=== PATIENT | female | born 1970 | race African-American/Black ===

== ENCOUNTER 2016-05-24 08:58 | Inpatient (IN) | payer BC, OTHER ==
[~2016-05-24] VITALS: Ht 149.9 cm; Wt 81.6 kg
--- NOTE | 2016-05-24 10:55 | PHYS DOC ---
Past Medical History Past Medical History: No Pertinent History Past Surgical History: Appendectomy, Hysterectomy Alcohol Use: Rarely Drug Use: None Adult General Chief Complaint Chief Complaint: LOWER EXTREMITY SWELLING HPI HPI Patient is a 46 year old female presents emergency department stating that a week ago she felt a lump on her left groin area. She states within the last few days it has become worse and increase in tenderness. She states that she did try to pop the area. She denies having any success with this. She does state that she's had some redness down into her upper thigh and into the pubic area. She's been taken Aleve for pain and discomfort. She does state her tetanus immunization is up-to-date. She does have white to yellowish drainage noted at the site. She has increased tenderness and warmth noted. Review of Systems Review of Systems Constitutional: Denies fever or chills [] Eyes: Denies change in visual acuity, redness, or eye pain [] HENT: Denies nasal congestion or sore throat [] Respiratory: Denies cough or shortness of breath [] Cardiovascular: No additional information not addressed in HPI [] GI: Denies abdominal pain, nausea, vomiting, bloody stools or diarrhea [] : Denies dysuria or hematuria [] Musculoskeletal: Denies back pain or joint pain [] Integument: Denies rash or skin lesions. Abscess to the left groin area with redness into the upper left thigh and in the pubic area Neurologic: Denies headache, focal weakness or sensory changes [] Endocrine: Denies polyuria or polydipsia [] Allergies Allergies Allergies Coded Allergies Type Severity Reaction Last Updated Verified No Known Drug Allergies 05/24/16 No Physical Exam Physical Exam Constitutional: Well developed, well nourished, no acute distress, non-toxic appearance. [] HENT: Normocephalic, atraumatic, bilateral external ears normal, oropharynx moist, no oral exudates, nose normal. [] Eyes: PERRLA, EOMI, conjunctiva normal, no discharge. [] Neck: Normal range of motion, no tenderness, supple, no stridor. [] Cardiovascular:Heart rate regular rhythm, no murmur [] Lungs & Thorax: Bilateral breath sounds clear to auscultation [] Skin: Warm, dry, no erythema, no rash. Left groin area with redness, warmth, tenderness noted in the groin into the pubic area and into the left upper thigh. Patient with yellow thick discharge noted at the site. Back: No tenderness Extremities: No tenderness, no cyanosis, no clubbing, ROM intact, no edema. [] Neurologic: Alert and oriented X 3, normal motor function, normal sensory function, no focal deficits noted. [] Psychologic: Affect normal, judgement normal, mood normal. [] Current Patient Data Vital Signs Vital Signs Date Time Temp Pulse Resp B/P Pulse Ox O2 Delivery O2 Flow Rate FiO2 05/24/16 10:24 98.2 90 20 162/75 96 Room Air 98.2 EKG EKG [] Radiology/Procedures Radiology/Procedures [] Course & Med Decision Making Course & Med Decision Making Pertinent Labs and Imaging studies reviewed. (See chart for details) Spoke with Dr Romo in regards to admission for this patient. He is aware labs are pending at this time. Dr Romo did request consult to ID CBC with a slight elevated white count [] Dragon Disclaimer Dragon Disclaimer This electronic medical record was generated, in whole or in part, using a voice recognition dictation system. Departure Departure Impression: Primary Impression: Cellulitis of leg, left Disposition: ADMITTED INPATIENT Admitting Physician: Jose Romo Condition: STABLE Referrals: CAROLINA SUTHERLAND DO (PCP) CASSIE JAMES NP May 24, 2016 10:55
[2016-05-24 11:17] LABS: BASO # 0.1 x10^3/uL (0.0-0.2); BASO % 1 % (0-3); EOS % 1 % (0-3); HEMATOCRIT 39.1 % (36.0-47.0); HEMOGLOBIN 13.3 g/dL (12.0-15.5); LYMPH # 1.8 x10^3/uL (1.0-4.8); LYMPH % 11 % (24-48); MEAN CORPUSCULAR HEMOGLOBIN 30 pg (25-35); MEAN CORPUSCULAR HGB CONC 34 g/dL (31-37); MEAN CORPUSCULAR VOLUME 87 fL (79-100); MONO % 5 % (0-9); NEUT % 83 % (31-73); PLATELET COUNT 211 x10^3/uL (140-400); RED BLOOD COUNT 4.52 x10^6/uL (3.50-5.40); RED CELL DISTRIBUTION WIDTH 12.8 % (11.5-14.5); WHITE BLOOD COUNT 16.8 x10^3/uL (4.0-11.0)
[2016-05-24 11:20] LABS: CALCIUM 9.5 mg/dL (8.5-10.1); GFR 72.9; POTASSIUM 3.5 mmol/L (3.5-5.1)
[2016-05-24 11:26] LABS: ALBUMIN 3.6 g/dL (3.4-5.0); ALBUMIN/GLOBULIN RATIO 0.7 (1.0-1.7); TOTAL PROTEIN 8.7 g/dL (6.4-8.2)
[2016-05-24] MEDS ORDERED: FENTANYL PF 100 MCG/2 ML VIAL. IV ONE (11:45)
[2016-05-24 12:53] LABS: % EOS 1 % (0-5)
[2016-05-24 12:54] LABS: PLT ESTIMATE ADEQUATE (ADEQUATE)
[2016-05-24 14:09] VITALS: BP 123/72
[2016-05-24] MEDS ORDERED: VANCOMYCIN PER PHARMACY MC PRN (14:15)
[2016-05-24] MEDS ORDERED: VANCOMYCIN 1 GM in IV NORMAL SALINE 250ML 250 ML IV SCH (14:15)
[2016-05-24] MEDS ORDERED: VANCOMYCIN 2 GM in IV NORMAL SALINE 500ML BAG 500 ML IV ONE (14:15)
--- NOTE | 2016-05-24 14:35 | PDOC ---
Infectious Disease Note ROS ROS GEN: Denies fevers, chills, sweats HEENT: Denies blurred vision, sore throat CV: Denies chest pain RESP: Denies shortness of air, cough GI: Denies n/v/d NEURO: Denies confusion, dizziness MSK: Denies weakness, joint pain/swelling Vital Sign Vital Signs Vital Signs Date Time Temp Pulse Resp B/P Pulse Ox O2 Delivery O2 Flow Rate FiO2 05/24/16 13:36 90 148/79 100 Room Air 05/24/16 12:06 18 05/24/16 10:24 98.2 98.2 Physical Exam PHYSICAL EXAM GENERAL: NAD, Alert HEENT: PERRL, OC/OP NECK: Supple, no JVD, no LN LUNGS: Clear HEART: S1S2, no gallop, no murmur ABD: Soft, NT, no organomegaly, no rebound EXT: No edema, no cyanosis AGENT SPA DESK: Alert, oriented x 3, no focal neurologic deficit SKIN: No rash IV: ok Labs Lab Laboratory Tests Test 05/24/16 11:00 White Blood Count 16.8x10^3/uL (4.0-11.0) Red Blood Count 4.52x10^6/uL (3.50-5.40) Hemoglobin 13.3g/dL (12.0-15.5) Hematocrit 39.1% (36.0-47.0) Mean Corpuscular Volume 87fL (79-100) Mean Corpuscular Hemoglobin 30pg (25-35) Mean Corpuscular Hemoglobin Concent 34g/dL (31-37) Red Cell Distribution Width 12.8% (11.5-14.5) Platelet Count 211x10^3/uL (140-400) Neutrophils (%) (Auto) 83% (31-73) Lymphocytes (%) (Auto) 11% (24-48) Monocytes (%) (Auto) 5% (0-9) Eosinophils (%) (Auto) 1% (0-3) Basophils (%) (Auto) 1% (0-3) Neutrophils # (Auto) 13.9x10^3uL (1.8-7.7) Lymphocytes # (Auto) 1.8x10^3/uL (1.0-4.8) Monocytes # (Auto) 0.9x10^3/uL (0.0-1.1) Eosinophils # (Auto) 0.1x10^3/uL (0.0-0.7) Basophils # (Auto) 0.1x10^3/uL (0.0-0.2) Segmented Neutrophils % 81% (35-66) Band Neutrophils % 1% (0-9) Lymphocytes % 10% (24-48) Atypical Lymphocytes % (Manual) 3% (0-0) Monocytes % 4% (0-10) Eosinophils % 1% (0-5) Platelet Estimate Adequate (ADEQUATE) Sodium Level 140mmol/L (136-145) Potassium Level 3.5mmol/L (3.5-5.1) Chloride Level 103mmol/L (98-107) Carbon Dioxide Level 27mmol/L (21-32) Anion Gap 10 (6-14) Blood Urea Nitrogen 17mg/dL (7-20) Creatinine 1.0mg/dL (0.6-1.0) Estimated GFR (Cockcroft-Gault) 72.9 BUN/Creatinine Ratio 17 (6-20) Glucose Level 108mg/dL (70-99) Lactic Acid Level 1.0mmol/L (0.4-2.0) Calcium Level 9.5mg/dL (8.5-10.1) Total Bilirubin 1.0mg/dL (0.2-1.0) Aspartate Amino Transf (AST/SGOT) 41U/L (15-37) Alanine Aminotransferase (ALT/SGPT) 61U/L (14-59) Alkaline Phosphatase 104U/L (46-116) Total Protein 8.7g/dL (6.4-8.2) Albumin 3.6g/dL (3.4-5.0) Albumin/Globulin Ratio 0.7 (1.0-1.7) Objective Assessment Left groin abscess Left groin cellulitis Obesity Transaminitis Plan Plan of Care Add Zosyn Change to Zyovx CT pelvis F/u labs and cults Contact isolation Await surgical eval D/w family # [id number] LOBITO WELCH MD May 24, 2016 14:35
--- NOTE | 2016-05-24 14:38 | PDOC1 ---
History and Physical Past Medical History Past Medical History none Past Surgical History Past Surgical History: Appendectomy Family History Family History: Other (abscess in children) Social History Smoke: No ALCOHOL: rare Current Problem List Problem List Problems Medical Problems: (1) Abscess Status: Acute (2) Cellulitis of leg, left Status: Acute Current Medications Current Medications Current Medications Medications (Trade) Dose Ordered Sig/Kaylee Start Time Stop Time Status Last Admin Dose Admin Acetaminophen/ Hydrocodone Bitart (Lortab 5/325) 1 tab Q4HRS 05/24/16 12:00 Fentanyl Citrate 50 mcg 50 mcg 1X ONCE 05/24/16 11:45 05/24/16 11:46 DC 05/24/16 12:06 50 MCG Linezolid (Zyvox) 600 mg BID 05/24/16 21:00 Piperacillin Sod/ Tazobactam Sod/ Sodium Chloride (Zosyn/Iv Sodium Chloride 0.9% 50ml) 50 ml @ 100 mls/hr Q6HRS 05/24/16 14:45 Vancomycin HCl 1 each 1 each PRN DAILY PRN 05/24/16 14:15 05/24/16 14:29 DC Vancomycin HCl 2 gm/Sodium Chloride 500 ml @ 250 mls/hr 1X ONCE 05/24/16 14:15 05/24/16 16:14 Vancomycin HCl/ Sodium Chloride (Iv Sodium Chloride 0.9% 250ml) 250 ml @ 250 mls/hr Q12H 05/24/16 14:15 UNV Allergies Allergies Allergies Coded Allergies Type Severity Reaction Last Updated Verified No Known Drug Allergies 05/24/16 No ROS Review of System CONSTITUTIONAL: No fever or chills EYES: No recent changes SKIN: No rash or itching CARDIOVASCULAR: No chest pain, syncope, palpitations, or edema RESPIRATORY: No SOB or cough GASTROINTESTINAL: No nausea, vomiting or abdominal pain NEUROLOGICAL: No headaches or weakness ENDOCRINE: No cold or heat intolerance GENITOURINARY: No urgency or frequency of urination MUSCULOSKELETAL: left thigh cellulitis. LYMPHATICS: No enlarged lymph nodes PSYCHIATRIC: No anxiety or depression Physical Exam Physical Exam GEN.: No apparent distress. Alert and oriented. HEENT: Head is normocephalic, atraumatic NECK: Supple. no jvd LUNGS: Clear to auscultation. normal airflow HEART: RRR, S1, S2 present. Peripheral pulses intact ABDOMEN: Soft, nontender. Positive bowel sounds. EXTREMITIES: left thigh abscess, cellulitis NEUROLOGIC: Normal speech, normal tone PSYCHIATRIC: Normal affect, normal mood. SKIN: Vitals Vitals Vital Signs Date Time Temp Pulse Resp B/P Pulse Ox O2 Delivery O2 Flow Rate FiO2 05/24/16 13:36 90 148/79 100 Room Air 05/24/16 12:06 18 05/24/16 10:24 98.2 98.2 Labs Labs Laboratory Tests Test 05/24/16 11:00 White Blood Count 16.8x10^3/uL (4.0-11.0) Red Blood Count 4.52x10^6/uL (3.50-5.40) Hemoglobin 13.3g/dL (12.0-15.5) Hematocrit 39.1% (36.0-47.0) Mean Corpuscular Volume 87fL (79-100) Mean Corpuscular Hemoglobin 30pg (25-35) Mean Corpuscular Hemoglobin Concent 34g/dL (31-37) Red Cell Distribution Width 12.8% (11.5-14.5) Platelet Count 211x10^3/uL (140-400) Neutrophils (%) (Auto) 83% (31-73) Lymphocytes (%) (Auto) 11% (24-48) Monocytes (%) (Auto) 5% (0-9) Eosinophils (%) (Auto) 1% (0-3) Basophils (%) (Auto) 1% (0-3) Neutrophils # (Auto) 13.9x10^3uL (1.8-7.7) Lymphocytes # (Auto) 1.8x10^3/uL (1.0-4.8) Monocytes # (Auto) 0.9x10^3/uL (0.0-1.1) Eosinophils # (Auto) 0.1x10^3/uL (0.0-0.7) Basophils # (Auto) 0.1x10^3/uL (0.0-0.2) Segmented Neutrophils % 81% (35-66) Band Neutrophils % 1% (0-9) Lymphocytes % 10% (24-48) Atypical Lymphocytes % (Manual) 3% (0-0) Monocytes % 4% (0-10) Eosinophils % 1% (0-5) Platelet Estimate Adequate (ADEQUATE) Sodium Level 140mmol/L (136-145) Potassium Level 3.5mmol/L (3.5-5.1) Chloride Level 103mmol/L (98-107) Carbon Dioxide Level 27mmol/L (21-32) Anion Gap 10 (6-14) Blood Urea Nitrogen 17mg/dL (7-20) Creatinine 1.0mg/dL (0.6-1.0) Estimated GFR (Cockcroft-Gault) 72.9 BUN/Creatinine Ratio 17 (6-20) Glucose Level 108mg/dL (70-99) Lactic Acid Level 1.0mmol/L (0.4-2.0) Calcium Level 9.5mg/dL (8.5-10.1) Total Bilirubin 1.0mg/dL (0.2-1.0) Aspartate Amino Transf (AST/SGOT) 41U/L (15-37) Alanine Aminotransferase (ALT/SGPT) 61U/L (14-59) Alkaline Phosphatase 104U/L (46-116) Total Protein 8.7g/dL (6.4-8.2) Albumin 3.6g/dL (3.4-5.0) Albumin/Globulin Ratio 0.7 (1.0-1.7) Laboratory Tests Test 05/24/16 11:00 White Blood Count 16.8x10^3/uL (4.0-11.0) Red Blood Count 4.52x10^6/uL (3.50-5.40) Hemoglobin 13.3g/dL (12.0-15.5) Hematocrit 39.1% (36.0-47.0) Mean Corpuscular Volume 87fL (79-100) Mean Corpuscular Hemoglobin 30pg (25-35) Mean Corpuscular Hemoglobin Concent 34g/dL (31-37) Red Cell Distribution Width 12.8% (11.5-14.5) Platelet Count 211x10^3/uL (140-400) Neutrophils (%) (Auto) 83% (31-73) Lymphocytes (%) (Auto) 11% (24-48) Monocytes (%) (Auto) 5% (0-9) Eosinophils (%) (Auto) 1% (0-3) Basophils (%) (Auto) 1% (0-3) Neutrophils # (Auto) 13.9x10^3uL (1.8-7.7) Lymphocytes # (Auto) 1.8x10^3/uL (1.0-4.8) Monocytes # (Auto) 0.9x10^3/uL (0.0-1.1) Eosinophils # (Auto) 0.1x10^3/uL (0.0-0.7) Basophils # (Auto) 0.1x10^3/uL (0.0-0.2) Segmented Neutrophils % 81% (35-66) Band Neutrophils % 1% (0-9) Lymphocytes % 10% (24-48) Atypical Lymphocytes % (Manual) 3% (0-0) Monocytes % 4% (0-10) Eosinophils % 1% (0-5) Platelet Estimate Adequate (ADEQUATE) Sodium Level 140mmol/L (136-145) Potassium Level 3.5mmol/L (3.5-5.1) Chloride Level 103mmol/L (98-107) Carbon Dioxide Level 27mmol/L (21-32) Anion Gap 10 (6-14) Blood Urea Nitrogen 17mg/dL (7-20) Creatinine 1.0mg/dL (0.6-1.0) Estimated GFR (Cockcroft-Gault) 72.9 BUN/Creatinine Ratio 17 (6-20) Glucose Level 108mg/dL (70-99) Lactic Acid Level 1.0mmol/L (0.4-2.0) Calcium Level 9.5mg/dL (8.5-10.1) Total Bilirubin 1.0mg/dL (0.2-1.0) Aspartate Amino Transf (AST/SGOT) 41U/L (15-37) Alanine Aminotransferase (ALT/SGPT) 61U/L (14-59) Alkaline Phosphatase 104U/L (46-116) Total Protein 8.7g/dL (6.4-8.2) Albumin 3.6g/dL (3.4-5.0) Albumin/Globulin Ratio 0.7 (1.0-1.7) VTE Prophylaxis Ordered VTE Prophylaxis Devices: Yes VTE Pharmacological Prophylaxi: Yes ENE ROBERTSON MD May 24, 2016 14:38
[2016-05-24] MEDS: HYDROCODONE/APAP 5/325MG TABLET. PO SCH ×2 (14:41→16:00)
[2016-05-24] MEDS ORDERED: ALBUTEROL SULFATE 2.5 MG/3 ML NEBU. NEB PRN (14:45)
[2016-05-24] MEDS ORDERED: hydrALAZINE 20 MG/ML VIAL. IVP PRN (14:45)
[2016-05-24] MEDS ORDERED: ONDANSETRON PF 4 MG/2 ML VIAL. IV PRN (14:45)
[2016-05-24] MEDS ORDERED: IOHEXOL 300 MG/ML 75 ML VIAL IV ONE (14:45)
[2016-05-24] MEDS ORDERED: CONTRAST GIVEN MC PRN (14:45)
[2016-05-24] MEDS ORDERED: ACETAMINOPHEN 325 MG TABLET. PO PRN (14:45)
--- NOTE | 2016-05-24 15:34 | RAD ---
Indication Left groin abscess. Axial images through the elbows were obtained. The abdomen was not examined. 75 cc of Omnipaque 300 was administered intravenously. No oral contrast was administered. There is streaking, compatible with an inflammatory process (such as cellulitis) in the subcutaneous soft tissues of the upper anterior thigh extending medially near the area of the labrum. There is moderate adenopathy in the left groin which is probably reactive. An underlying abscess is not seen. No additional finding is seen. IMPRESSION: Findings in the left upper and medial thigh compatible with an inflammatory process such as cellulitis. Moderate adenopathy in the left groin is likely reactive. No underlying abscess is seen PQRS Compliance Statement: One or more of the following individualized dose reduction techniques were utilized for this examination: 1. Automated exposure control 2. Adjustment of the mA and/or kV according to patient size 3. Use of iterative reconstruction technique
[2016-05-24] MEDS: PIPERACILLIN/TAZOBACTAM 3.375 GM in IV NORMAL SALINE 50ML 50 ML IV SCH ×2 (15:49→18:00)
--- NOTE | 2016-05-24 16:15 | ACF ---
Admission Forms Criteria CELLULITIS Clinical Indications for Admission to Inpatient Care (Place 'X' for any and all applicable criteria): Admission is indicated for ANY ONE of the following(1)(2)(3)(4)(5): [X]I. Limb-threatening infection [ ]II. High-risk comorbid condition as indicated by ANY ONE of the following: [ ]a) Uncontrolled diabetes (eg, HbA1c greater than 10% (0.1)) [ ]b) Cirrhosis [ ]c) Neutropenia [ ]d) Asplenia [ ]e) Immunosuppression [ ]f) Symptomatic heart failure [ ]III. Failure of outpatient therapy as indicated by ALL of the following: [ ]a) Progression or no improvement after adequate trial (minimum of 48 hours, with longer period for stable lower extremity infection) [ ]b) Adequate antibiotic regimen as indicated by use of ANY ONE of the following: [ ]i) First-generation cephalosporin (e.g., cephalexin) [ ]ii) Antistaphylococcal penicillin (e.g., dicloxacillin) [ ]iii) Penicillin-allergic patient regimen (clindamycin, extended-spectrum fluoroquinolone, or doxycycline) [ ]iv) Resistant organism (eg, methicillin-resistant Staphylococcus aureus) regimen (6) [ ]c) Outpatient intravenous therapy regimen is not appropriate due to ANY ONE of the following. (7)(8)(9)(10): [ ]i) It was tried and was not successful (eg, progression of infection). [ ]ii) It is not available or cannot be arranged in a clinically appropriate time frame (e.g., the next day). [ ]iii) Clinical presentation (eg, acuity of infection, rapidity of progression, confirmed or suspected bacteremia) is judged to require ALL of the following: [ ]1) Immediate initiation of intravenous therapy ( eg, cannot wait for next day) [ ]2) Intensity of patient monitoring and observation (eg, vital sign measurement, checks for infection progression) that cannot be provided at other than inpatient level of care [ ]IV. Mental status changes [ ]V. Bacteremia [ ]. Hemodynamic instability [ ]VII. Suspected necrotizing soft tissue infection (e.g., gas in tissue)(11)( 12) [ ]VIII. Orbital infection (13)(14) [ ]IX. Associated surgical procedure (e.g., abscess drainage, debridement) not amenable to outpatient, emergency department, or observation care [ ]X. Cutaneous gangrene [ ]XI. High fever (temperature greater than 39.5 degrees C (103.1 degrees F) (oral)) not responsive to outpatient, emergency department, or observation care therapy [ ]XIII. Inpatient admission required rather than observation care (Also use Cellulitis: Observation Care as appropriate) because of ANY ONE of the following : [ ]a) Periorbital or perineal infection that is severe or worsening [ ]b) Severe pain requiring acute inpatient management [ ]c) IV fluid to replace significant ongoing (e.g., for over 24 hours) losses (greater than 3L/m2 per day) [ ]d) Compartment syndrome monitoring (17) [ ]e) Strict or protective (eg, laminar flow) isolation [ ]f) Urgent debridement or skin grafting [ ]g) Bone or joint debridement [ ]h) Immediate inpatient surgery [ ]i) Other condition, treatment or monitoring requiring inpatient admission Extended stay beyond goal length of stay may be needed for (1)(18): [ ]a) Necrotizing soft tissue infection or fasciitis [ ]b) Gram-negative infection [ ]c) Methicillin-resistant Staphylococcal aureus (MRSA) infection [ ]d) Peripheral venous insufficiency with cellulitis [ ]e) Extensive edema [ ]f) Sepsis or continued Hemodynamic instability [ ]g) Continued high fever or mental status change [ ]h) Bacteremia [ ]i) Active serious comorbid conditions ( eg, heart failure, renal insufficiency) The original [employer] content created by [employer] has been revised. The portions of the content which have been revised are identified through the use of italic text or in bold, and [facility] has neither reviewed nor approved the modified material. All other unmodified content is copyright [employer] [facility] [employer] Please see references footnoted in the original [employer] [facility] [employer] edition 2016 Admission Criteria Met?: Yes NIR VEGA May 24, 2016 16:14
[2016-05-24 19:00] VITALS: BP 122/75
[2016-05-24] MEDS: LINEZOLID 600 MG TABLET PO SCH (21:03)
[2016-05-24] MEDS: HYDROCODONE/APAP 5/325MG TABLET. PO PRN (21:06)
[2016-05-24 23:00] VITALS: BP 128/61
[2016-05-25] MEDS: PIPERACILLIN/TAZOBACTAM 3.375 GM in IV NORMAL SALINE 50ML 50 ML IV SCH ×5 (00:17→23:59)
[2016-05-25 03:00] VITALS: BP 105/60
--- NOTE | 2016-05-25 03:26 | HP ---
ADMIT DATE: 05/24/2016 CHIEF COMPLAINT: Left lower extremity redness and swelling. HISTORY OF PRESENT ILLNESS: A 46-year-old female patient with no significant prior history noted to have a lump on her left groin area and she did poke it; however, later, she continued to notice some redness and worsening pain with increased swelling in the left groin area. The patient tried to take some amoxicillin from family members, she took 2 tablets; however, she did not get any relief. She tried Aleve, which did not give her any comfort. She is complaining of some discharge from that area along with worsening pain. PAST MEDICAL HISTORY, REVIEW OF SYSTEMS AND PHYSICAL EXAMINATION: Please see my electronic H and P. LABORATORY FINDINGS: WBC 16.8, hemoglobin is 13.3, MCV is 87, MCHC is 34, platelets 211, bands 1%. Chemistry: Sodium is 140, potassium 3.5, carbon dioxide is 27, anion gap is 10, creatinine 1.0, GFR is 72.9, albumin is 3.6. IMAGING STUDIES: Pelvic CT showed findings in the left upper and medial thickened, but with inflammatory process such as cellulitis, moderate adenopathy in the left groin, likely reactive. ASSESSMENT: 1. Left groin abscess and cellulitis. 2. Obesity, mild elevation of liver enzymes. PLAN: 1. The patient has been admitted for pain control and IV antibiotics. Infectious Disease has been consulted. The patient was started on Zosyn and Zylox at this time. Pain control with morphine 2 mg q. 2 hours. 2. Supportive care. 3. If symptoms did not improve, we will consult General Surgery. 4. Wound cultures have been obtained. 5. No DVT prophylaxis. 6. Length of stay is expecting <5 days. ENE ROBERTSON MD DR: ZOË/berto JOB#: [id number] / [id number] SUSAN
[2016-05-25 07:00] VITALS: BP 127/71
[2016-05-25 07:05] LABS: BASO % 0 % (0-3); EOS % 2 % (0-3); HEMATOCRIT 34.6 % (36.0-47.0); HEMOGLOBIN 11.7 g/dL (12.0-15.5); LYMPH # 1.4 x10^3/uL (1.0-4.8); LYMPH % 15 % (24-48); MEAN CORPUSCULAR HEMOGLOBIN 29 pg (25-35); MEAN CORPUSCULAR HGB CONC 34 g/dL (31-37); MEAN CORPUSCULAR VOLUME 87 fL (79-100); MONO % 6 % (0-9); NEUT % 77 % (31-73); PLATELET COUNT 204 x10^3/uL (140-400); RED BLOOD COUNT 3.97 x10^6/uL (3.50-5.40); RED CELL DISTRIBUTION WIDTH 13.1 % (11.5-14.5); WHITE BLOOD COUNT 8.9 x10^3/uL (4.0-11.0)
[2016-05-25 07:27] LABS: GFR 72.9; POTASSIUM 3.4 mmol/L (3.5-5.1)
--- NOTE | 2016-05-25 08:02 | PDOC2 ---
LAUREN HOLLIS MR TEACHER 05/25/16 0802: CONSULT Date of Consult Date of Consult DATE: 05/25/16 TIME: 07:56 Reason for Consult Reason for Consult: Groin abscess Referring Physician Referring Physician: ER Identification/Chief Complaint Chief Complaint groin swelling Source Source: Chart review, Patient History of Present Illness Reason for Visit: Saturday developed groin pain, bumps-though maybe ingrown hair. Saturday more swelling and pain, sister plucked some hairs and attempted to "pop the mass and relieve pressure. It only had some bloody return. The pain and pressure continued, she then developed worsening redness to leg. Past Medical History Past Medical History no pertinent hx Past Surgical History Past Surgical History: Appendectomy, Hysterectomy Family History Family History: Other (abscess in children) Social History No ALCOHOL: rare Drugs: None Lives: Alone Current Problem List Problem List Problems Medical Problems: (1) Abscess Status: Acute (2) Cellulitis of leg, left Status: Acute Current Medications Current Medications Current Medications Acetaminophen/ Hydrocodone Bitart (Lortab 5/325) 1 tab Q4HRS PO Last administered on 05/24/16 14:41; Start 05/24/16 at 12:00; Stop 05/24/16 at 17:54; Status DC Fentanyl Citrate 50 mcg 50 mcg 1X ONCE IV Last administered on 05/24/16 12:06 ; Start 05/24/16 at 11:45; Stop 05/24/16 at 11:46; Status DC Vancomycin HCl/ Sodium Chloride (Iv Sodium Chloride 0.9% 250ml) 250 ml @ 250 mls/hr Q12H IV ; Start 05/24/16 at 14:15; Status UNV Vancomycin HCl 1 each 1 each PRN DAILY PRN MC SEE COMMENTS; Start 05/24/16 at 14 :15; Stop 05/24/16 at 14:29; Status DC Vancomycin HCl 2 gm/Sodium Chloride 500 ml @ 250 mls/hr 1X ONCE IV Last administered on 05/24/16 15:51; Start 05/24/16 at 14:15; Stop 05/24/16 at 16:14; Status DC Piperacillin Sod/ Tazobactam Sod/ Sodium Chloride (Zosyn/Iv Sodium Chloride 0.9 % 50ml) 50 ml @ 100 mls/hr Q6HRS IV Last administered on 05/25/16 06:03; Start 05/24/16 at 14:45 Linezolid (Zyvox) 600 mg BID PO Last administered on 05/24/16 21:03; Start 05/24 at 21:00 Acetaminophen (Tylenol) 325 mg PRN Q6HRS PRN PO MILD PAIN / TEMP; Start at 14:45 Acetaminophen/ Hydrocodone Bitart (Lortab 5/325) 1 tab PRN Q6HRS PRN PO MODERATE TO SEVERE PAIN Last administered on 05/24/16 21:06; Start 05/24/16 at 14 :45 Hydralazine HCl (Apresoline) 10 mg PRN Q4HRS PRN IVP ELEVATED BP, SEE COMMENTS ; Start 05/24/16 at 14:45 Ondansetron HCl (Zofran) 4 mg PRN Q8HRS PRN IV NAUSEA/VOMITING; Start 05/24/16 at 14:45 Albuterol Sulfate (Ventolin Neb Soln) 2.5 mg PRN Q4HRS PRN NEB SHORTNESS OF BREATH; Start 05/24/16 at 14:45 Morphine Sulfate 2 mg PRN Q2HR PRN IV PAIN; Start 05/24/16 at 14:45 Iohexol (Omnipaque 300 Mg/ml) 75 ml 1X ONCE IV Last administered on 05/24/16 14:45; Start 05/24/16 at 14:45; Stop 05/24/16 at 14:46; Status DC Info (Do NOT chart on this entry -- for MONITORING) 1 each PRN DAILY PRN MC SEE COMMENTS; Start 05/24/16 at 14:45; Stop 05/26/16 at 14:44 Allergies Allergies: Coded Allergies: No Known Drug Allergies (Unverified , 05/24/16) ROS General: YES: Chills, Other (+ fevers ) PSYCHOLOGICAL ROS: No: Anxiety, Depression Eyes: No Blurry vision, No Double vision HEENT: No: Heacaches, Sore Throat Hematological and Lymphatic: No: Bleeding Problems, Blood Clots Respiratory: No: Cough, Shortness of breath Cardiovascular: No Chest Pain, No Palpitations Gastrointestinal: No Nausea, No Vomiting Genitourinary: No Dysuria, No Hematuria Musculoskeletal: Yes Muscle Pain, No Joint Pain Neurological: No Confusion, No Numbness/Tingling Skin: Yes Other (see hpi) Physical Exam General: Alert, Oriented X3, Cooperative, No acute distress HEENT: PERRLA, Mucous membr. moist/pink Lungs: Clear to auscultation, Normal air movement Heart: Regular rate, Normal S1, Normal S2, No murmurs Abdomen: Soft, No tenderness Extremities: Other (Left groin with erythema, no fluctuance, open wound, small amount of drainage, minimal induration ) Neuro: Normal speech, Sensation intact Psych/Mental Status: Mental status NL, Mood NL MUSCULOSKELETAL: No deformity, No swelling Vitals VITALS Vital Signs Date Time Temp Pulse Resp B/P Pulse Ox O2 Delivery O2 Flow Rate FiO2 05/25/16 07:25 Room Air 05/25/16 03:00 97.5 83 18 105/60 94 97.5 Labs Labs Laboratory Tests Test 05/24/16 11:00 05/25/16 05:35 White Blood Count 16.8x10^3/uL (4.0-11.0) 8.9x10^3/uL (4.0-11.0) Red Blood Count 4.52x10^6/uL (3.50-5.40) 3.97x10^6/uL (3.50-5.40) Hemoglobin 13.3g/dL (12.0-15.5) 11.7g/dL (12.0-15.5) Hematocrit 39.1% (36.0-47.0) 34.6% (36.0-47.0) Mean Corpuscular Volume 87fL (79-100) 87fL (79-100) Mean Corpuscular Hemoglobin 30pg (25-35) 29pg (25-35) Mean Corpuscular Hemoglobin Concent 34g/dL (31-37) 34g/dL (31-37) Red Cell Distribution Width 12.8% (11.5-14.5) 13.1% (11.5-14.5) Platelet Count 211x10^3/uL (140-400) 204x10^3/uL (140-400) Neutrophils (%) (Auto) 83% (31-73) 77% (31-73) Lymphocytes (%) (Auto) 11% (24-48) 15% (24-48) Monocytes (%) (Auto) 5% (0-9) 6% (0-9) Eosinophils (%) (Auto) 1% (0-3) 2% (0-3) Basophils (%) (Auto) 1% (0-3) 0% (0-3) Neutrophils # (Auto) 13.9x10^3uL (1.8-7.7) 6.9x10^3uL (1.8-7.7) Lymphocytes # (Auto) 1.8x10^3/uL (1.0-4.8) 1.4x10^3/uL (1.0-4.8) Monocytes # (Auto) 0.9x10^3/uL (0.0-1.1) 0.5x10^3/uL (0.0-1.1) Eosinophils # (Auto) 0.1x10^3/uL (0.0-0.7) 0.2x10^3/uL (0.0-0.7) Basophils # (Auto) 0.1x10^3/uL (0.0-0.2) 0.0x10^3/uL (0.0-0.2) Segmented Neutrophils % 81% (35-66) Band Neutrophils % 1% (0-9) Lymphocytes % 10% (24-48) Atypical Lymphocytes % (Manual) 3% (0-0) Monocytes % 4% (0-10) Eosinophils % 1% (0-5) Platelet Estimate Adequate (ADEQUATE) Sodium Level 140mmol/L (136-145) 142mmol/L (136-145) Potassium Level 3.5mmol/L (3.5-5.1) 3.4mmol/L (3.5-5.1) Chloride Level 103mmol/L (98-107) 107mmol/L (98-107) Carbon Dioxide Level 27mmol/L (21-32) 26mmol/L (21-32) Anion Gap 10 (6-14) 9 (6-14) Blood Urea Nitrogen 17mg/dL (7-20) 15mg/dL (7-20) Creatinine 1.0mg/dL (0.6-1.0) 1.0mg/dL (0.6-1.0) Estimated GFR (Cockcroft-Gault) 72.9 72.9 BUN/Creatinine Ratio 17 (6-20) Glucose Level 108mg/dL (70-99) 101mg/dL (70-99) Lactic Acid Level 1.0mmol/L (0.4-2.0) Calcium Level 9.5mg/dL (8.5-10.1) 9.0mg/dL (8.5-10.1) Total Bilirubin 1.0mg/dL (0.2-1.0) Aspartate Amino Transf (AST/SGOT) 41U/L (15-37) Alanine Aminotransferase (ALT/SGPT) 61U/L (14-59) Alkaline Phosphatase 104U/L (46-116) Total Protein 8.7g/dL (6.4-8.2) Albumin 3.6g/dL (3.4-5.0) Albumin/Globulin Ratio 0.7 (1.0-1.7) Laboratory Tests Test 05/24/16 11:00 05/25/16 05:35 White Blood Count 16.8x10^3/uL (4.0-11.0) 8.9x10^3/uL (4.0-11.0) Red Blood Count 4.52x10^6/uL (3.50-5.40) 3.97x10^6/uL (3.50-5.40) Hemoglobin 13.3g/dL (12.0-15.5) 11.7g/dL (12.0-15.5) Hematocrit 39.1% (36.0-47.0) 34.6% (36.0-47.0) Mean Corpuscular Volume 87fL (79-100) 87fL (79-100) Mean Corpuscular Hemoglobin 30pg (25-35) 29pg (25-35) Mean Corpuscular Hemoglobin Concent 34g/dL (31-37) 34g/dL (31-37) Red Cell Distribution Width 12.8% (11.5-14.5) 13.1% (11.5-14.5) Platelet Count 211x10^3/uL (140-400) 204x10^3/uL (140-400) Neutrophils (%) (Auto) 83% (31-73) 77% (31-73) Lymphocytes (%) (Auto) 11% (24-48) 15% (24-48) Monocytes (%) (Auto) 5% (0-9) 6% (0-9) Eosinophils (%) (Auto) 1% (0-3) 2% (0-3) Basophils (%) (Auto) 1% (0-3) 0% (0-3) Neutrophils # (Auto) 13.9x10^3uL (1.8-7.7) 6.9x10^3uL (1.8-7.7) Lymphocytes # (Auto) 1.8x10^3/uL (1.0-4.8) 1.4x10^3/uL (1.0-4.8) Monocytes # (Auto) 0.9x10^3/uL (0.0-1.1) 0.5x10^3/uL (0.0-1.1) Eosinophils # (Auto) 0.1x10^3/uL (0.0-0.7) 0.2x10^3/uL (0.0-0.7) Basophils # (Auto) 0.1x10^3/uL (0.0-0.2) 0.0x10^3/uL (0.0-0.2) Segmented Neutrophils % 81% (35-66) Band Neutrophils % 1% (0-9) Lymphocytes % 10% (24-48) Atypical Lymphocytes % (Manual) 3% (0-0) Monocytes % 4% (0-10) Eosinophils % 1% (0-5) Platelet Estimate Adequate (ADEQUATE) Sodium Level 140mmol/L (136-145) 142mmol/L (136-145) Potassium Level 3.5mmol/L (3.5-5.1) 3.4mmol/L (3.5-5.1) Chloride Level 103mmol/L (98-107) 107mmol/L (98-107) Carbon Dioxide Level 27mmol/L (21-32) 26mmol/L (21-32) Anion Gap 10 (6-14) 9 (6-14) Blood Urea Nitrogen 17mg/dL (7-20) 15mg/dL (7-20) Creatinine 1.0mg/dL (0.6-1.0) 1.0mg/dL (0.6-1.0) Estimated GFR (Cockcroft-Gault) 72.9 72.9 BUN/Creatinine Ratio 17 (6-20) Glucose Level 108mg/dL (70-99) 101mg/dL (70-99) Lactic Acid Level 1.0mmol/L (0.4-2.0) Calcium Level 9.5mg/dL (8.5-10.1) 9.0mg/dL (8.5-10.1) Total Bilirubin 1.0mg/dL (0.2-1.0) Aspartate Amino Transf (AST/SGOT) 41U/L (15-37) Alanine Aminotransferase (ALT/SGPT) 61U/L (14-59) Alkaline Phosphatase 104U/L (46-116) Total Protein 8.7g/dL (6.4-8.2) Albumin 3.6g/dL (3.4-5.0) Albumin/Globulin Ratio 0.7 (1.0-1.7) Assessment/Plan Assessment/Plan Left groin cellulitis Obesity No drainable abscess on CT, wound is open--would place small packing strip in wound to keep open Continue abx Follow for possible development of drainable abscess will review with DESTINY Cho MD 05/25/16 0934: CONSULT Allergies Allergies: Coded Allergies: No Known Drug Allergies (Unverified , 05/24/16) Assessment/Plan Assessment/Plan Patient seen and examined by me. Left upper leg erythema and pain with open sore in the groin with drainage. Improving wbc. CT did not show drainable fluid collection. Continue abx will follow. LAUREN HOLLIS APRN May 25, 2016 08:02 DESTINY PETERSEN MD May 25, 2016 09:34
[2016-05-25] MEDS: HYDROCODONE/APAP 5/325MG TABLET. PO PRN ×2 (08:04→16:27)
--- NOTE | 2016-05-25 08:13 | PDOC ---
Infectious Disease Note Subjective Subjective Doing ok. Less pain ROS ROS GEN: Denies fevers, chills, sweats HEENT: Denies blurred vision, sore throat CV: Denies chest pain RESP: Denies shortness of air, cough GI: Denies n/v/d NEURO: Denies confusion, dizziness MSK: Denies weakness Vital Sign Vital Signs Vital Signs Date Time Temp Pulse Resp B/P Pulse Ox O2 Delivery O2 Flow Rate FiO2 05/25/16 08:04 Room Air 05/25/16 03:00 97.5 83 18 105/60 94 97.5 Physical Exam PHYSICAL EXAM GENERAL: NAD, Alert HEENT: PERRL, OC/OP -clear NECK: Supple, no JVD, no LN LUNGS: Clear HEART: S1S2, no gallop, no murmur ABD: Soft, NT, no organomegaly, no rebound, obese EXT: No edema, no cyanosis. Left groin wound open and drained. Less warmth and erythema fading but a little more diffuse ENVIRONMENTAL EPIDEMIOLOGIST: Alert, oriented x 3, no focal neurologic deficit SKIN: No rash IV: ok Labs Lab Laboratory Tests Test 05/24/16 11:00 05/25/16 05:35 White Blood Count 16.8x10^3/uL (4.0-11.0) 8.9x10^3/uL (4.0-11.0) Red Blood Count 4.52x10^6/uL (3.50-5.40) 3.97x10^6/uL (3.50-5.40) Hemoglobin 13.3g/dL (12.0-15.5) 11.7g/dL (12.0-15.5) Hematocrit 39.1% (36.0-47.0) 34.6% (36.0-47.0) Mean Corpuscular Volume 87fL (79-100) 87fL (79-100) Mean Corpuscular Hemoglobin 30pg (25-35) 29pg (25-35) Mean Corpuscular Hemoglobin Concent 34g/dL (31-37) 34g/dL (31-37) Red Cell Distribution Width 12.8% (11.5-14.5) 13.1% (11.5-14.5) Platelet Count 211x10^3/uL (140-400) 204x10^3/uL (140-400) Neutrophils (%) (Auto) 83% (31-73) 77% (31-73) Lymphocytes (%) (Auto) 11% (24-48) 15% (24-48) Monocytes (%) (Auto) 5% (0-9) 6% (0-9) Eosinophils (%) (Auto) 1% (0-3) 2% (0-3) Basophils (%) (Auto) 1% (0-3) 0% (0-3) Neutrophils # (Auto) 13.9x10^3uL (1.8-7.7) 6.9x10^3uL (1.8-7.7) Lymphocytes # (Auto) 1.8x10^3/uL (1.0-4.8) 1.4x10^3/uL (1.0-4.8) Monocytes # (Auto) 0.9x10^3/uL (0.0-1.1) 0.5x10^3/uL (0.0-1.1) Eosinophils # (Auto) 0.1x10^3/uL (0.0-0.7) 0.2x10^3/uL (0.0-0.7) Basophils # (Auto) 0.1x10^3/uL (0.0-0.2) 0.0x10^3/uL (0.0-0.2) Segmented Neutrophils % 81% (35-66) Band Neutrophils % 1% (0-9) Lymphocytes % 10% (24-48) Atypical Lymphocytes % (Manual) 3% (0-0) Monocytes % 4% (0-10) Eosinophils % 1% (0-5) Platelet Estimate Adequate (ADEQUATE) Sodium Level 140mmol/L (136-145) 142mmol/L (136-145) Potassium Level 3.5mmol/L (3.5-5.1) 3.4mmol/L (3.5-5.1) Chloride Level 103mmol/L (98-107) 107mmol/L (98-107) Carbon Dioxide Level 27mmol/L (21-32) 26mmol/L (21-32) Anion Gap 10 (6-14) 9 (6-14) Blood Urea Nitrogen 17mg/dL (7-20) 15mg/dL (7-20) Creatinine 1.0mg/dL (0.6-1.0) 1.0mg/dL (0.6-1.0) Estimated GFR (Cockcroft-Gault) 72.9 72.9 BUN/Creatinine Ratio 17 (6-20) Glucose Level 108mg/dL (70-99) 101mg/dL (70-99) Lactic Acid Level 1.0mmol/L (0.4-2.0) Calcium Level 9.5mg/dL (8.5-10.1) 9.0mg/dL (8.5-10.1) Total Bilirubin 1.0mg/dL (0.2-1.0) Aspartate Amino Transf (AST/SGOT) 41U/L (15-37) Alanine Aminotransferase (ALT/SGPT) 61U/L (14-59) Alkaline Phosphatase 104U/L (46-116) Total Protein 8.7g/dL (6.4-8.2) Albumin 3.6g/dL (3.4-5.0) Albumin/Globulin Ratio 0.7 (1.0-1.7) Objective Assessment Left groin abscess - open and drained. CT reviewed. GPC Left groin cellulitis - better Obesity Transaminitis Plan Plan of Care Cont Zyovx/Zosyn F/u labs and cults f/u LFTs - d/w lab should be ready soon Contact isolation LOBITO WELCH MD May 25, 2016 08:13
[2016-05-25 08:32] LABS: ALBUMIN 2.9 g/dL (3.4-5.0); DIRECT BILIRUBIN 0.3 mg/dL (0.0-0.2); TOTAL BILIRUBIN 0.9 mg/dL (0.2-1.0); TOTAL PROTEIN 6.5 g/dL (6.4-8.2)
[2016-05-25] MEDS: LINEZOLID 600 MG TABLET PO SCH ×2 (08:52→21:05)
[2016-05-25 11:00] VITALS: BP 130/72
[2016-05-25] MEDS: MORPHINE SULFATE 2 MG/ML DISP.SYRIN. IV PRN (11:25)
--- NOTE | 2016-05-25 13:44 | PDOC ---
PROGRESS NOTES Chief Complaint Chief Complaint a/p 1. Left groin abscess and cellulitis. 2. Obesity, mild elevation of liver enzymes. Plan continue current iv abx pain control with iv morphine labs reviwed follow gram statin and blood cx supportive care not ready for DC Vitals Vitals Vital Signs Date Time Temp Pulse Resp B/P Pulse Ox O2 Delivery O2 Flow Rate FiO2 05/25/16 11:25 Room Air 05/25/16 11:00 97.9 75 18 130/72 97 97.9 Physical Exam General: Alert, Oriented X3, Cooperative, No acute distress Heart: Regular rate, Normal S1, Normal S2, No murmurs Abdomen: Soft, No tenderness Extremities: Other (Left groin with erythema, no fluctuance, open wound, small amount of drainage, minimal induration ) Labs LABS Laboratory Tests Test 05/25/16 05:35 White Blood Count 8.9x10^3/uL (4.0-11.0) Red Blood Count 3.97x10^6/uL (3.50-5.40) Hemoglobin 11.7g/dL (12.0-15.5) Hematocrit 34.6% (36.0-47.0) Mean Corpuscular Volume 87fL (79-100) Mean Corpuscular Hemoglobin 29pg (25-35) Mean Corpuscular Hemoglobin Concent 34g/dL (31-37) Red Cell Distribution Width 13.1% (11.5-14.5) Platelet Count 204x10^3/uL (140-400) Neutrophils (%) (Auto) 77% (31-73) Lymphocytes (%) (Auto) 15% (24-48) Monocytes (%) (Auto) 6% (0-9) Eosinophils (%) (Auto) 2% (0-3) Basophils (%) (Auto) 0% (0-3) Neutrophils # (Auto) 6.9x10^3uL (1.8-7.7) Lymphocytes # (Auto) 1.4x10^3/uL (1.0-4.8) Monocytes # (Auto) 0.5x10^3/uL (0.0-1.1) Eosinophils # (Auto) 0.2x10^3/uL (0.0-0.7) Basophils # (Auto) 0.0x10^3/uL (0.0-0.2) Sodium Level 142mmol/L (136-145) Potassium Level 3.4mmol/L (3.5-5.1) Chloride Level 107mmol/L (98-107) Carbon Dioxide Level 26mmol/L (21-32) Anion Gap 9 (6-14) Blood Urea Nitrogen 15mg/dL (7-20) Creatinine 1.0mg/dL (0.6-1.0) Estimated GFR (Cockcroft-Gault) 72.9 Glucose Level 101mg/dL (70-99) Calcium Level 9.0mg/dL (8.5-10.1) Total Bilirubin 0.9mg/dL (0.2-1.0) Direct Bilirubin 0.3mg/dL (0.0-0.2) Aspartate Amino Transf (AST/SGOT) 97U/L (15-37) Alanine Aminotransferase (ALT/SGPT) 122U/L (14-59) Alkaline Phosphatase 114U/L (46-116) Total Protein 6.5g/dL (6.4-8.2) Albumin 2.9g/dL (3.4-5.0) Assessment and Plan Assessmemt and Plan Problems Medical Problems: (1) Abscess Status: Acute (2) Cellulitis of leg, left Status: Acute Problems: Comment Review of Relevant I have reviewed the following items alec (where applicable) has been applied. Labs Laboratory Tests Test 05/24/16 11:00 05/25/16 05:35 White Blood Count 16.8x10^3/uL (4.0-11.0) 8.9x10^3/uL (4.0-11.0) Red Blood Count 4.52x10^6/uL (3.50-5.40) 3.97x10^6/uL (3.50-5.40) Hemoglobin 13.3g/dL (12.0-15.5) 11.7g/dL (12.0-15.5) Hematocrit 39.1% (36.0-47.0) 34.6% (36.0-47.0) Mean Corpuscular Volume 87fL (79-100) 87fL (79-100) Mean Corpuscular Hemoglobin 30pg (25-35) 29pg (25-35) Mean Corpuscular Hemoglobin Concent 34g/dL (31-37) 34g/dL (31-37) Red Cell Distribution Width 12.8% (11.5-14.5) 13.1% (11.5-14.5) Platelet Count 211x10^3/uL (140-400) 204x10^3/uL (140-400) Neutrophils (%) (Auto) 83% (31-73) 77% (31-73) Lymphocytes (%) (Auto) 11% (24-48) 15% (24-48) Monocytes (%) (Auto) 5% (0-9) 6% (0-9) Eosinophils (%) (Auto) 1% (0-3) 2% (0-3) Basophils (%) (Auto) 1% (0-3) 0% (0-3) Neutrophils # (Auto) 13.9x10^3uL (1.8-7.7) 6.9x10^3uL (1.8-7.7) Lymphocytes # (Auto) 1.8x10^3/uL (1.0-4.8) 1.4x10^3/uL (1.0-4.8) Monocytes # (Auto) 0.9x10^3/uL (0.0-1.1) 0.5x10^3/uL (0.0-1.1) Eosinophils # (Auto) 0.1x10^3/uL (0.0-0.7) 0.2x10^3/uL (0.0-0.7) Basophils # (Auto) 0.1x10^3/uL (0.0-0.2) 0.0x10^3/uL (0.0-0.2) Segmented Neutrophils % 81% (35-66) Band Neutrophils % 1% (0-9) Lymphocytes % 10% (24-48) Atypical Lymphocytes % (Manual) 3% (0-0) Monocytes % 4% (0-10) Eosinophils % 1% (0-5) Platelet Estimate Adequate (ADEQUATE) Sodium Level 140mmol/L (136-145) 142mmol/L (136-145) Potassium Level 3.5mmol/L (3.5-5.1) 3.4mmol/L (3.5-5.1) Chloride Level 103mmol/L (98-107) 107mmol/L (98-107) Carbon Dioxide Level 27mmol/L (21-32) 26mmol/L (21-32) Anion Gap 10 (6-14) 9 (6-14) Blood Urea Nitrogen 17mg/dL (7-20) 15mg/dL (7-20) Creatinine 1.0mg/dL (0.6-1.0) 1.0mg/dL (0.6-1.0) Estimated GFR (Cockcroft-Gault) 72.9 72.9 BUN/Creatinine Ratio 17 (6-20) Glucose Level 108mg/dL (70-99) 101mg/dL (70-99) Lactic Acid Level 1.0mmol/L (0.4-2.0) Calcium Level 9.5mg/dL (8.5-10.1) 9.0mg/dL (8.5-10.1) Total Bilirubin 1.0mg/dL (0.2-1.0) 0.9mg/dL (0.2-1.0) Aspartate Amino Transf (AST/SGOT) 41U/L (15-37) 97U/L (15-37) Alanine Aminotransferase (ALT/SGPT) 61U/L (14-59) 122U/L (14-59) Alkaline Phosphatase 104U/L (46-116) 114U/L (46-116) Total Protein 8.7g/dL (6.4-8.2) 6.5g/dL (6.4-8.2) Albumin 3.6g/dL (3.4-5.0) 2.9g/dL (3.4-5.0) Albumin/Globulin Ratio 0.7 (1.0-1.7) Direct Bilirubin 0.3mg/dL (0.0-0.2) Laboratory Tests Test 05/25/16 05:35 White Blood Count 8.9x10^3/uL (4.0-11.0) Red Blood Count 3.97x10^6/uL (3.50-5.40) Hemoglobin 11.7g/dL (12.0-15.5) Hematocrit 34.6% (36.0-47.0) Mean Corpuscular Volume 87fL (79-100) Mean Corpuscular Hemoglobin 29pg (25-35) Mean Corpuscular Hemoglobin Concent 34g/dL (31-37) Red Cell Distribution Width 13.1% (11.5-14.5) Platelet Count 204x10^3/uL (140-400) Neutrophils (%) (Auto) 77% (31-73) Lymphocytes (%) (Auto) 15% (24-48) Monocytes (%) (Auto) 6% (0-9) Eosinophils (%) (Auto) 2% (0-3) Basophils (%) (Auto) 0% (0-3) Neutrophils # (Auto) 6.9x10^3uL (1.8-7.7) Lymphocytes # (Auto) 1.4x10^3/uL (1.0-4.8) Monocytes # (Auto) 0.5x10^3/uL (0.0-1.1) Eosinophils # (Auto) 0.2x10^3/uL (0.0-0.7) Basophils # (Auto) 0.0x10^3/uL (0.0-0.2) Sodium Level 142mmol/L (136-145) Potassium Level 3.4mmol/L (3.5-5.1) Chloride Level 107mmol/L (98-107) Carbon Dioxide Level 26mmol/L (21-32) Anion Gap 9 (6-14) Blood Urea Nitrogen 15mg/dL (7-20) Creatinine 1.0mg/dL (0.6-1.0) Estimated GFR (Cockcroft-Gault) 72.9 Glucose Level 101mg/dL (70-99) Calcium Level 9.0mg/dL (8.5-10.1) Total Bilirubin 0.9mg/dL (0.2-1.0) Direct Bilirubin 0.3mg/dL (0.0-0.2) Aspartate Amino Transf (AST/SGOT) 97U/L (15-37) Alanine Aminotransferase (ALT/SGPT) 122U/L (14-59) Alkaline Phosphatase 114U/L (46-116) Total Protein 6.5g/dL (6.4-8.2) Albumin 2.9g/dL (3.4-5.0) Microbiology 05/24/16 Blood Culture - Preliminary, Resulted NO GROWTH AFTER 1 DAY 05/24/16 Gram Stain - Final, Complete Medications Current Medications Acetaminophen/ Hydrocodone Bitart (Lortab 5/325) 1 tab Q4HRS PO Last administered on 05/24/16 14:41; Start 05/24/16 at 12:00; Stop 05/24/16 at 17:54; Status DC Fentanyl Citrate 50 mcg 50 mcg 1X ONCE IV Last administered on 05/24/16 12:06 ; Start 05/24/16 at 11:45; Stop 05/24/16 at 11:46; Status DC Vancomycin HCl/ Sodium Chloride (Iv Sodium Chloride 0.9% 250ml) 250 ml @ 250 mls/hr Q12H IV ; Start 05/24/16 at 14:15; Status UNV Vancomycin HCl 1 each 1 each PRN DAILY PRN MC SEE COMMENTS; Start 05/24/16 at 14 :15; Stop 05/24/16 at 14:29; Status DC Vancomycin HCl 2 gm/Sodium Chloride 500 ml @ 250 mls/hr 1X ONCE IV Last administered on 05/24/16 15:51; Start 05/24/16 at 14:15; Stop 05/24/16 at 16:14; Status DC Piperacillin Sod/ Tazobactam Sod/ Sodium Chloride (Zosyn/Iv Sodium Chloride 0.9 % 50ml) 50 ml @ 100 mls/hr Q6HRS IV Last administered on 05/25/16 11:25; Start 05/24/16 at 14:45 Linezolid (Zyvox) 600 mg BID PO Last administered on 05/25/16 08:52; Start 05/24/16 at 21:00 Acetaminophen (Tylenol) 325 mg PRN Q6HRS PRN PO MILD PAIN / TEMP; Start at 14:45 Acetaminophen/ Hydrocodone Bitart (Lortab 5/325) 1 tab PRN Q6HRS PRN PO MODERATE TO SEVERE PAIN Last administered on 05/25/16 08:04; Start 05/24/16 at 14:45 Hydralazine HCl (Apresoline) 10 mg PRN Q4HRS PRN IVP ELEVATED BP, SEE COMMENTS ; Start 05/24/16 at 14:45 Ondansetron HCl (Zofran) 4 mg PRN Q8HRS PRN IV NAUSEA/VOMITING; Start 05/24/16 at 14:45 Albuterol Sulfate (Ventolin Neb Soln) 2.5 mg PRN Q4HRS PRN NEB SHORTNESS OF BREATH; Start 05/24/16 at 14:45 Morphine Sulfate 2 mg PRN Q2HR PRN IV PAIN Last administered on 05/25/16 11:25 ; Start 05/24/16 at 14:45 Iohexol (Omnipaque 300 Mg/ml) 75 ml 1X ONCE IV Last administered on 05/24/16 14:45; Start 05/24/16 at 14:45; Stop 05/24/16 at 14:46; Status DC Info (Do NOT chart on this entry -- for MONITORING) 1 each PRN DAILY PRN MC SEE COMMENTS; Start 05/24/16 at 14:45; Stop 05/26/16 at 14:44 Vitals/I & O Vital Sign - Last 24 Hours 05/24/16 05/24/16 05/24/16 05/24/16 14:09 14:09 19:00 20:05 Temp 97.7 97.7 98.4 97.7 97.7 98.4 Pulse 75 75 75 Resp 19 19 20 B/P 123/72 123/72 122/75 Pulse Ox 100 100 100 O2 Delivery Room Air Room Air Room Air Room Air 05/24/16 05/24/16 05/24/16 05/25/16 21:06 22:06 23:00 03:00 Temp 98.5 97.5 98.5 97.5 Pulse 88 83 Resp 16 16 18 18 B/P 128/61 105/60 Pulse Ox 95 94 O2 Delivery Room Air Room Air Room Air 05/25/16 05/25/16 05/25/16 05/25/16 07:00 07:25 08:04 09:06 Temp 97.7 97.7 Pulse 76 Resp 18 B/P 127/71 Pulse Ox 98 O2 Delivery Room Air Room Air Room Air Room Air 05/25/16 05/25/16 11:00 11:25 Temp 97.9 97.9 Pulse 75 Resp 18 B/P 130/72 Pulse Ox 97 O2 Delivery Room Air Room Air Intake and Output 05/24/16 05/24/16 05/25/16 15:00 23:00 07:00 Intake Total 240 ml Balance 240 ml ENE ROBERTSON MD May 25, 2016 13:44
[2016-05-25 15:00] VITALS: BP 121/76
[2016-05-25 19:00] VITALS: BP 110/47
--- NOTE | 2016-05-25 19:04 | CONS ---
DATE OF CONSULTATION: 05/24/2016 ROOM: 400. REQUESTING PHYSICIAN: Dr. Romo. REASON FOR CONSULTATION: Groin abscess. HISTORY OF PRESENT ILLNESS: The patient is a pleasant 46-year-old -[place] female without significant past medical history, who since about a week or so ago developed ____, which causes a hair bump in the left groin area. Over time, it had grown more painful. She tried to pop it, however, did not improve. She then developed fever, chills, sweats last night, had increasing pain, redness and swelling. She had been taking some Aleve; however, it continued to worsen and she presented to [facility] today. Her temperature was 98.2, white blood cell count was elevated at 16.8. She was given vancomycin and admitted to the hospital. Currently, she is lying in bed. She is fairly comfortable. She has had a headache for about 3 days. No gross sore throat or cough or chest pain. No diarrhea, no constipation. No dysuria, frequency, urgency. Denies any traumas or falls. PAST MEDICAL HISTORY: Negative. PAST SURGICAL HISTORY: Positive for appendectomy as well as total abdominal hysterectomy. REVIEW OF SYSTEMS: Otherwise negative except for mentioned above, although her daughter has had likely MRSA abscesses needing I and D and doxycycline. SOCIAL HISTORY: She works in [employer] and also works as a junior brand manager at [employer]. Denies any tobacco. Has a dog and 2 children. FAMILY HISTORY: Again, positive for MRSA abscesses. CURRENT MEDICATIONS: Include vancomycin, fentanyl and Lortab. Other meds are available and have been reviewed in the chart. PHYSICAL EXAMINATION: VITAL SIGNS: She is afebrile, temperature 98.2, pulse 90, blood pressure 148/79, 100% on room air, respirations were 18. CONSTITUTIONAL: She is pleasant and cooperative. She is obese. She is in no acute distress. HEENT: Pupils are equal and reactive. She has normal conjunctivae. Oral cavity, oropharynx is clear. NECK: Supple, good range of motion. LUNGS: Clear to auscultation bilaterally. HEART: S1, S2. ABDOMEN: Obese, soft, nontender, nondistended, positive bowel sounds. EXTREMITIES: No clubbing, cyanosis or gross edema. SKIN: Warm to touch without signs of rash. She has tattoos on the lower extremity. On her left groin, she has area of erythema ____ in the inguinal area extending down her thigh into the middle aspect. There was a pocket approximately 3 cm x 2 cm, appears to be purulent material. NEUROLOGIC: She is nonfocal, moves all extremities. Affect is appropriate. LABORATORY VALUES: White count 16.8, hemoglobin 13.3, platelets are 211, segs are 81, bands are 1. Creatinine of 1, glucose 108, AST 41, ALT 61. IMAGING STUDIES: There are no imaging studies. IMPRESSION: 1. Left groin abscess. 2. Left groin cellulitis. 3. Obesity. 4. Transaminitis. RECOMMENDATIONS: Had Zosyn changed to Zyvox. CT pelvis, follow up labs and cultures and contact isolation. This was discussed with the family. Await surgical evaluation. Thank you for allowing me to see and participate in the patient's care. Should you have any questions, please do not hesitate to contact me. LOBITO WELCH MD DR: STEVEN/berto JOB#: [id number] / [id number]
[2016-05-25 23:14] VITALS: BP 118/53
[2016-05-26 03:00] VITALS: BP 120/48
[2016-05-26] MEDS: PIPERACILLIN/TAZOBACTAM 3.375 GM in IV NORMAL SALINE 50ML 50 ML IV SCH ×2 (06:18→12:25)
[2016-05-26 07:00] VITALS: BP 127/75
[2016-05-26] MEDS: LINEZOLID 600 MG TABLET PO SCH ×2 (08:52→20:11)
--- NOTE | 2016-05-26 09:32 | PDOC ---
SURGICAL PROGRESS NOTE Subjective Less pain in the left groin, but has complaints of frequent urination with discomfort and trouble having BM Vital Signs Vital Signs Date Time Temp Pulse Resp B/P Pulse Ox O2 Delivery O2 Flow Rate FiO2 05/26/16 07:20 Room Air 05/26/16 07:00 98.0 70 18 127/75 97 98.0 I&O Intake and Output 05/26/16 07:00 Intake Total 660 ml Balance 660 ml Intake Oral 660 ml # Voids 2 General: Alert, Oriented X3, Cooperative, mild distress Abdomen: Normal bowel sounds, Soft, No tenderness Extremities: Other (less erythema, less drainage from wound ) Labs Laboratory Tests Test 05/24/16 11:00 05/25/16 05:35 White Blood Count 16.8x10^3/uL (4.0-11.0) 8.9x10^3/uL (4.0-11.0) Red Blood Count 4.52x10^6/uL (3.50-5.40) 3.97x10^6/uL (3.50-5.40) Hemoglobin 13.3g/dL (12.0-15.5) 11.7g/dL (12.0-15.5) Hematocrit 39.1% (36.0-47.0) 34.6% (36.0-47.0) Mean Corpuscular Volume 87fL (79-100) 87fL (79-100) Mean Corpuscular Hemoglobin 30pg (25-35) 29pg (25-35) Mean Corpuscular Hemoglobin Concent 34g/dL (31-37) 34g/dL (31-37) Red Cell Distribution Width 12.8% (11.5-14.5) 13.1% (11.5-14.5) Platelet Count 211x10^3/uL (140-400) 204x10^3/uL (140-400) Neutrophils (%) (Auto) 83% (31-73) 77% (31-73) Lymphocytes (%) (Auto) 11% (24-48) 15% (24-48) Monocytes (%) (Auto) 5% (0-9) 6% (0-9) Eosinophils (%) (Auto) 1% (0-3) 2% (0-3) Basophils (%) (Auto) 1% (0-3) 0% (0-3) Neutrophils # (Auto) 13.9x10^3uL (1.8-7.7) 6.9x10^3uL (1.8-7.7) Lymphocytes # (Auto) 1.8x10^3/uL (1.0-4.8) 1.4x10^3/uL (1.0-4.8) Monocytes # (Auto) 0.9x10^3/uL (0.0-1.1) 0.5x10^3/uL (0.0-1.1) Eosinophils # (Auto) 0.1x10^3/uL (0.0-0.7) 0.2x10^3/uL (0.0-0.7) Basophils # (Auto) 0.1x10^3/uL (0.0-0.2) 0.0x10^3/uL (0.0-0.2) Segmented Neutrophils % 81% (35-66) Band Neutrophils % 1% (0-9) Lymphocytes % 10% (24-48) Atypical Lymphocytes % (Manual) 3% (0-0) Monocytes % 4% (0-10) Eosinophils % 1% (0-5) Platelet Estimate Adequate (ADEQUATE) Sodium Level 140mmol/L (136-145) 142mmol/L (136-145) Potassium Level 3.5mmol/L (3.5-5.1) 3.4mmol/L (3.5-5.1) Chloride Level 103mmol/L (98-107) 107mmol/L (98-107) Carbon Dioxide Level 27mmol/L (21-32) 26mmol/L (21-32) Anion Gap 10 (6-14) 9 (6-14) Blood Urea Nitrogen 17mg/dL (7-20) 15mg/dL (7-20) Creatinine 1.0mg/dL (0.6-1.0) 1.0mg/dL (0.6-1.0) Estimated GFR (Cockcroft-Gault) 72.9 72.9 BUN/Creatinine Ratio 17 (6-20) Glucose Level 108mg/dL (70-99) 101mg/dL (70-99) Lactic Acid Level 1.0mmol/L (0.4-2.0) Calcium Level 9.5mg/dL (8.5-10.1) 9.0mg/dL (8.5-10.1) Total Bilirubin 1.0mg/dL (0.2-1.0) 0.9mg/dL (0.2-1.0) Aspartate Amino Transf (AST/SGOT) 41U/L (15-37) 97U/L (15-37) Alanine Aminotransferase (ALT/SGPT) 61U/L (14-59) 122U/L (14-59) Alkaline Phosphatase 104U/L (46-116) 114U/L (46-116) Total Protein 8.7g/dL (6.4-8.2) 6.5g/dL (6.4-8.2) Albumin 3.6g/dL (3.4-5.0) 2.9g/dL (3.4-5.0) Albumin/Globulin Ratio 0.7 (1.0-1.7) Direct Bilirubin 0.3mg/dL (0.0-0.2) Problem List Problems Medical Problems: (1) Abscess Status: Acute (2) Cellulitis of leg, left Status: Acute Assessment/Plan Left groin abscess s/p spontaneous drainage and cellulitis Improving continue abx per ID Problems: DESTINY PETERSEN MD May 26, 2016 09:32
[2016-05-26 11:00] VITALS: BP 140/69
--- NOTE | 2016-05-26 13:49 | PDOC ---
Infectious Disease Note Subjective Subjective Doing ok. Less pain ROS ROS GEN: Denies fevers, chills, sweats HEENT: Denies blurred vision, sore throat CV: Denies chest pain RESP: Denies shortness of air, cough GI: Denies n/v/d NEURO: Denies confusion, dizziness Vital Sign Vital Signs Vital Signs Date Time Temp Pulse Resp B/P Pulse Ox O2 Delivery O2 Flow Rate FiO2 05/26/16 11:00 97.9 60 18 140/69 97 Room Air 97.9 Physical Exam PHYSICAL EXAM GENERAL: NAD, Alert HEENT: PERRL, OC/OP NECK: Supple, no JVD, no LN LUNGS: Clear HEART: S1S2, no gallop, no murmur ABD: Soft, NT, no organomegaly, no rebound EXT: No edema, no cyanosis,, left groin and thigh red and indurated LIME SUPERVISOR: Alert, oriented x 3, no focal neurologic deficit SKIN: No rash IV: ok Labs Micro culture MRSA Objective Assessment Left groin abscess - open and drained. CT reviewed. GPC Left groin cellulitis - better Obesity Transaminitis Plan Plan of Care Cont Zyovx d/c /Zosyn F/u labs and cults f/u LFTs - d/w lab should be ready soon Contact isolation DALY STOLL MD May 26, 2016 13:49
[2016-05-26] MEDS: MORPHINE SULFATE 2 MG/ML DISP.SYRIN. IV PRN (14:50)
[2016-05-26] MEDS: FLUCONAZOLE 100 MG TABLET. PO SCH (14:51)
[2016-05-26] MEDS: HYDROCODONE/APAP 5/325MG TABLET. PO PRN (14:51)
[2016-05-26 15:00] VITALS: BP 121/64
--- NOTE | 2016-05-26 15:16 | PDOC ---
PROGRESS NOTES Chief Complaint Chief Complaint a/p 1. Left groin abscess and cellulitis. 2. Obesity, mild elevation of liver enzymes. Plan continue current iv abx pain control with iv morphine labs reviwed follow gram statin and blood cx supportive care Vitals Vitals Vital Signs Date Time Temp Pulse Resp B/P Pulse Ox O2 Delivery O2 Flow Rate FiO2 05/26/16 14:50 Room Air 05/26/16 11:00 97.9 60 18 140/69 97 97.9 Physical Exam General: Alert, Oriented X3, Cooperative, mild distress Heart: Regular rate, Normal S1, Normal S2, No murmurs Abdomen: Normal bowel sounds, Soft, No tenderness Extremities: Other (less erythema, less drainage from wound ) Assessment and Plan Assessmemt and Plan Problems Medical Problems: (1) Abscess Status: Acute (2) Cellulitis of leg, left Status: Acute Problems: Comment Review of Relevant I have reviewed the following items alec (where applicable) has been applied. Labs Laboratory Tests Test 05/25/16 05:35 White Blood Count 8.9x10^3/uL (4.0-11.0) Red Blood Count 3.97x10^6/uL (3.50-5.40) Hemoglobin 11.7g/dL (12.0-15.5) Hematocrit 34.6% (36.0-47.0) Mean Corpuscular Volume 87fL (79-100) Mean Corpuscular Hemoglobin 29pg (25-35) Mean Corpuscular Hemoglobin Concent 34g/dL (31-37) Red Cell Distribution Width 13.1% (11.5-14.5) Platelet Count 204x10^3/uL (140-400) Neutrophils (%) (Auto) 77% (31-73) Lymphocytes (%) (Auto) 15% (24-48) Monocytes (%) (Auto) 6% (0-9) Eosinophils (%) (Auto) 2% (0-3) Basophils (%) (Auto) 0% (0-3) Neutrophils # (Auto) 6.9x10^3uL (1.8-7.7) Lymphocytes # (Auto) 1.4x10^3/uL (1.0-4.8) Monocytes # (Auto) 0.5x10^3/uL (0.0-1.1) Eosinophils # (Auto) 0.2x10^3/uL (0.0-0.7) Basophils # (Auto) 0.0x10^3/uL (0.0-0.2) Sodium Level 142mmol/L (136-145) Potassium Level 3.4mmol/L (3.5-5.1) Chloride Level 107mmol/L (98-107) Carbon Dioxide Level 26mmol/L (21-32) Anion Gap 9 (6-14) Blood Urea Nitrogen 15mg/dL (7-20) Creatinine 1.0mg/dL (0.6-1.0) Estimated GFR (Cockcroft-Gault) 72.9 Glucose Level 101mg/dL (70-99) Calcium Level 9.0mg/dL (8.5-10.1) Total Bilirubin 0.9mg/dL (0.2-1.0) Direct Bilirubin 0.3mg/dL (0.0-0.2) Aspartate Amino Transf (AST/SGOT) 97U/L (15-37) Alanine Aminotransferase (ALT/SGPT) 122U/L (14-59) Alkaline Phosphatase 114U/L (46-116) Total Protein 6.5g/dL (6.4-8.2) Albumin 2.9g/dL (3.4-5.0) Microbiology 05/24/16 Blood Culture - Preliminary, Resulted NO GROWTH AFTER 2 DAYS 05/24/16 Gram Stain - Final, Complete Medications Current Medications Acetaminophen/ Hydrocodone Bitart (Lortab 5/325) 1 tab Q4HRS PO Last administered on 05/24/16 14:41; Start 05/24/16 at 12:00; Stop 05/24/16 at 17:54; Status DC Fentanyl Citrate 50 mcg 50 mcg 1X ONCE IV Last administered on 05/24/16 12:06 ; Start 05/24/16 at 11:45; Stop 05/24/16 at 11:46; Status DC Vancomycin HCl/ Sodium Chloride (Iv Sodium Chloride 0.9% 250ml) 250 ml @ 250 mls/hr Q12H IV ; Start 05/24/16 at 14:15; Status UNV Vancomycin HCl 1 each 1 each PRN DAILY PRN MC SEE COMMENTS; Start 05/24/16 at 14 :15; Stop 05/24/16 at 14:29; Status DC Vancomycin HCl 2 gm/Sodium Chloride 500 ml @ 250 mls/hr 1X ONCE IV Last administered on 05/24/16 15:51; Start 05/24/16 at 14:15; Stop 05/24/16 at 16:14; Status DC Piperacillin Sod/ Tazobactam Sod/ Sodium Chloride (Zosyn/Iv Sodium Chloride 0.9 % 50ml) 50 ml @ 100 mls/hr Q6HRS IV Last administered on 05/26/16 12:25; Start 05/24/16 at 14:45; Stop 05/26/16 at 13:50; Status DC Linezolid (Zyvox) 600 mg BID PO Last administered on 05/26/16 08:52; Start 05/24/16 at 21:00 Acetaminophen (Tylenol) 325 mg PRN Q6HRS PRN PO MILD PAIN / TEMP; Start at 14:45 Acetaminophen/ Hydrocodone Bitart (Lortab 5/325) 1 tab PRN Q6HRS PRN PO MODERATE TO SEVERE PAIN Last administered on 05/26/16 14:51; Start 05/24/16 at 14:45 Hydralazine HCl (Apresoline) 10 mg PRN Q4HRS PRN IVP ELEVATED BP, SEE COMMENTS ; Start 05/24/16 at 14:45 Ondansetron HCl (Zofran) 4 mg PRN Q8HRS PRN IV NAUSEA/VOMITING Last administered on 05/25/16 17:47; Start 05/24/16 at 14:45 Albuterol Sulfate (Ventolin Neb Soln) 2.5 mg PRN Q4HRS PRN NEB SHORTNESS OF BREATH; Start 05/24/16 at 14:45 Morphine Sulfate 2 mg PRN Q2HR PRN IV PAIN Last administered on 05/26/16 14:50 ; Start 05/24/16 at 14:45 Iohexol (Omnipaque 300 Mg/ml) 75 ml 1X ONCE IV Last administered on 05/24/16 14:45; Start 05/24/16 at 14:45; Stop 05/24/16 at 14:46; Status DC Info (Do NOT chart on this entry -- for MONITORING) 1 each PRN DAILY PRN MC SEE COMMENTS; Start 05/24/16 at 14:45; Stop 05/26/16 at 14:44; Status DC Fluconazole (Diflucan) 200 mg DAILY PO Last administered on 05/26/16t 14:51; Start 05/26/16 at 14:00 Vitals/I & O Vital Sign - Last 24 Hours 05/25/16 05/25/16 05/25/16 05/25/16 16:27 17:36 19:00 20:00 Temp 98.3 98.3 Pulse 67 Resp 18 B/P 110/47 Pulse Ox 96 O2 Delivery Room Air Room Air Room Air Room Air 05/25/16 05/26/16 05/26/16 05/26/16 23:14 03:00 07:00 07:20 Temp 98.2 98.2 98.0 98.2 98.2 98.0 Pulse 67 64 70 Resp 18 18 18 B/P 118/53 120/48 127/75 Pulse Ox 96 98 97 O2 Delivery Room Air Room Air Room Air Room Air 05/26/16 05/26/16 11:00 14:50 Temp 97.9 97.9 Pulse 60 Resp 18 B/P 140/69 Pulse Ox 97 O2 Delivery Room Air Room Air Intake and Output 05/25/16 05/25/16 05/26/16 15:00 23:00 07:00 Intake Total 180 ml 480 ml Balance 180 ml 480 ml ENE ROBERTSON MD May 26, 2016 15:16
[2016-05-26] MEDS ORDERED: MAGNESIUM HYDROXIDE 2,400 MG/30 ML ORAL.SUSP. PO PRN (18:30)
[2016-05-26 19:00] VITALS: BP 128/69
[2016-05-26 23:00] VITALS: BP 125/60
[2016-05-27 03:00] VITALS: BP 130/57
[2016-05-27 07:00] VITALS: BP 133/74
[2016-05-27] MEDS: POLYETHYLENE GLYCOL 3350 17 GM PACKET. PO PRN (08:17)
[2016-05-27] MEDS: MORPHINE SULFATE 2 MG/ML DISP.SYRIN. IV PRN ×2 (08:17→14:05)
[2016-05-27] MEDS: LINEZOLID 600 MG TABLET PO SCH ×2 (08:17→21:23)
[2016-05-27] MEDS: FLUCONAZOLE 100 MG TABLET. PO SCH (08:17)
--- NOTE | 2016-05-27 10:37 | PDOC ---
SURGICAL PROGRESS NOTE Subjective Doing ok, improving pain Vital Signs Vital Signs Date Time Temp Pulse Resp B/P Pulse Ox O2 Delivery O2 Flow Rate FiO2 05/27/16 09:05 Room Air 05/27/16 07:00 97.5 62 18 133/74 98 97.5 I&O Intake and Output 05/27/16 07:00 Intake Total 480 ml Balance 480 ml Intake Oral 480 ml # Voids 4 PATIENT HAS A SHERWOOD: No General: Alert, Oriented X3, Cooperative, No acute distress Extremities: Other (Left groin wound packed, postive edema less erythema) Problem List Problems Medical Problems: (1) Abscess Status: Acute (2) Cellulitis of leg, left Status: Acute Assessment/Plan MRSA left groin abscess and cellulitis, spont drained Continue IV abx per ID Problems: DESTINY PETERSEN MD May 27, 2016 10:37
--- NOTE | 2016-05-27 10:52 | PDOC ---
Infectious Disease Note Subjective Subjective c/o left groin pain rating an 8. + BM ROS ROS GEN: Denies fevers, chills, sweats CV: Denies chest pain RESP: Denies shortness of air, cough GI: Denies n/v/d Vital Sign Vital Signs Vital Signs Date Time Temp Pulse Resp B/P Pulse Ox O2 Delivery O2 Flow Rate FiO2 05/27/16 09:05 Room Air 05/27/16 07:00 97.5 62 18 133/74 98 97.5 Physical Exam PHYSICAL EXAM GENERAL: Alert, walking back to bed, NAD HEENT: PERRL, OC/OP clear LUNGS: Clear HEART: S1S2, no gallop, no murmur ABD: Soft, NT EXT: No edema, no cyanosis SPECIALIST PHYSICIANS: Alert, oriented x 3, no focal neurologic deficit SKIN: No rash. Left groin wound with packing, area very tender, some induration Labs Micro Left groin AEROBIC RES 1 Final Methicillin resistant (MRSA) Antibiotic RSLT#1 Ciprofloxacin S Clindamycin S Erythromycin R Gentamicin S Levofloxacin S Linezolid S Oxacillin R Penicillin R Rifampin S Tetracycline S Trimethoprim/Sulfa S Vancomycin S BLOOD CULTURE Preliminary NO GROWTH AFTER 2 DAYS Objective Assessment Left groin abscess - open and drained. MRSA Left groin cellulitis Obesity Transaminitis Plan Plan of Care Cont Zyvox and fluconazole Check labs Contact isolation Attending Co-Sign The patient was seen and interviewed as well as examined at the bedside. The chart was reviewed. The case was discussed. Agree with the plan of care. MIA KAUR APRN May 27, 2016 10:52 DALY STOLL MD May 27, 2016 13:27
[2016-05-27 11:00] VITALS: BP 117/52
[2016-05-27] MEDS: HYDROCODONE/APAP 5/325MG TABLET. PO PRN (11:56)
--- NOTE | 2016-05-27 12:13 | PDOC ---
PROGRESS NOTES Chief Complaint Chief Complaint a/p 1. Left groin abscess and cellulitis.MRSA 2. Obesity, mild elevation of liver enzymes. Plan continue current iv abx, change to PO per ID Anticipated DC today, pain control out pt follow up with ID. labs reviwed supportive care Vitals Vitals Vital Signs Date Time Temp Pulse Resp B/P Pulse Ox O2 Delivery O2 Flow Rate FiO2 05/27/16 11:56 Room Air 05/27/16 07:00 97.5 62 18 133/74 98 97.5 Physical Exam General: Alert, Oriented X3, Cooperative, No acute distress Heart: Regular rate, Normal S1, Normal S2, No murmurs Lungs: Clear Abdomen: Normal bowel sounds, Soft, No tenderness Extremities: Other (Left groin wound packed, postive edema less erythema) Assessment and Plan Assessmemt and Plan Problems Medical Problems: (1) Abscess Status: Acute (2) Cellulitis of leg, left Status: Acute Problems: Comment Review of Relevant I have reviewed the following items alec (where applicable) has been applied. Labs Microbiology 05/24/16 Blood Culture - Preliminary, Resulted NO GROWTH AFTER 3 DAYS 05/24/16 Gram Stain - Final, Complete Medications Current Medications Acetaminophen/ Hydrocodone Bitart (Lortab 5/325) 1 tab Q4HRS PO Last administered on 05/24/16 14:41; Start 05/24/16 at 12:00; Stop 05/24/16 at 17:54; Status DC Fentanyl Citrate 50 mcg 50 mcg 1X ONCE IV Last administered on 05/24/16 12:06 ; Start 05/24/16 at 11:45; Stop 05/24/16 at 11:46; Status DC Vancomycin HCl/ Sodium Chloride (Iv Sodium Chloride 0.9% 250ml) 250 ml @ 250 mls/hr Q12H IV ; Start 05/24/16 at 14:15; Status UNV Vancomycin HCl 1 each 1 each PRN DAILY PRN MC SEE COMMENTS; Start 05/24/16 at 14 :15; Stop 05/24/16 at 14:29; Status DC Vancomycin HCl 2 gm/Sodium Chloride 500 ml @ 250 mls/hr 1X ONCE IV Last administered on 05/24/16t 15:51; Start 05/24/16 at 14:15; Stop 05/24/16 at 16:14; Status DC Piperacillin Sod/ Tazobactam Sod/ Sodium Chloride (Zosyn/Iv Sodium Chloride 0.9 % 50ml) 50 ml @ 100 mls/hr Q6HRS IV Last administered on 05/26/16 12:25; Start 05/24/16 at 14:45; Stop 05/26/16 at 13:50; Status DC Linezolid (Zyvox) 600 mg BID PO Last administered on 05/27/16 08:17; Start 05/24/16 at 21:00 Acetaminophen (Tylenol) 325 mg PRN Q6HRS PRN PO MILD PAIN / TEMP; Start at 14:45 Acetaminophen/ Hydrocodone Bitart (Lortab 5/325) 1 tab PRN Q6HRS PRN PO MODERATE TO SEVERE PAIN Last administered on 05/27/16 11:56; Start 05/24/16 at 14:45 Hydralazine HCl (Apresoline) 10 mg PRN Q4HRS PRN IVP ELEVATED BP, SEE COMMENTS ; Start 05/24/16 at 14:45 Ondansetron HCl (Zofran) 4 mg PRN Q8HRS PRN IV NAUSEA/VOMITING Last administered on 05/25/16 17:47; Start 05/24/16 at 14:45 Albuterol Sulfate (Ventolin Neb Soln) 2.5 mg PRN Q4HRS PRN NEB SHORTNESS OF BREATH; Start 05/24/16 at 14:45 Morphine Sulfate 2 mg PRN Q2HR PRN IV PAIN Last administered on 05/27/16 08:17 ; Start 05/24/16 at 14:45 Iohexol (Omnipaque 300 Mg/ml) 75 ml 1X ONCE IV Last administered on 05/24/16 14:45; Start 05/24/16 at 14:45; Stop 05/24/16 at 14:46; Status DC Info (Do NOT chart on this entry -- for MONITORING) 1 each PRN DAILY PRN MC SEE COMMENTS; Start 05/24/16 at 14:45; Stop 05/26/16 at 14:44; Status DC Fluconazole (Diflucan) 200 mg DAILY PO Last administered on 05/27/16 08:17; Start 05/26/16 at 14:00 Polyethylene Glycol (miraLAX PACKET) 17 gm PRN DAILY PRN PO CONSTIPATION Last administered on 05/27/16 08:17; Start 05/26/16 at 18:30 Magnesium Hydroxide (Milk Of Magnesia) 2,400 mg PRN DAILY PRN PO CONSTIPATION Last administered on 05/26/16 20:11; Start 05/26/16 at 18:30 Vitals/I & O Vital Sign - Last 24 Hours 05/26/16 05/26/16 05/26/16 05/26/16 14:50 15:00 16:18 19:00 Temp 97.7 98.0 97.7 98.0 Pulse 66 62 Resp 18 20 B/P 121/64 128/69 Pulse Ox 97 99 O2 Delivery Room Air Room Air Room Air Room Air 05/26/16 05/26/16 05/27/16 05/27/16 20:00 23:00 03:00 07:00 Temp 97.7 98.8 97.7 98.8 Pulse 73 65 Resp 18 18 B/P 125/60 130/57 Pulse Ox 97 97 O2 Delivery Room Air Room Air Room Air Room Air 05/27/16 05/27/16 05/27/16 05/27/16 07:00 08:17 09:05 11:56 Temp 97.5 97.5 Pulse 62 Resp 18 B/P 133/74 Pulse Ox 98 O2 Delivery Room Air Room Air Room Air Room Air Intake and Output 05/26/16 05/26/16 05/27/16 15:00 23:00 07:00 Intake Total 480 ml 0 ml Balance 480 ml 0 ml ENE ROBERTSON MD May 27, 2016 12:13
[2016-05-27 12:15] LABS: BASO % 1 % (0-3); EOS % 3 % (0-3); HEMOGLOBIN 12.8 g/dL (12.0-15.5); LYMPH # 1.8 x10^3/uL (1.0-4.8); LYMPH % 33 % (24-48); MEAN CORPUSCULAR HEMOGLOBIN 29 pg (25-35); MEAN CORPUSCULAR HGB CONC 34 g/dL (31-37); MEAN CORPUSCULAR VOLUME 87 fL (79-100); MONO % 8 % (0-9); NEUT % 55 % (31-73); PLATELET COUNT 300 x10^3/uL (140-400); RED BLOOD COUNT 4.36 x10^6/uL (3.50-5.40); RED CELL DISTRIBUTION WIDTH 12.6 % (11.5-14.5); WHITE BLOOD COUNT 5.5 x10^3/uL (4.0-11.0)
[2016-05-27 12:26] LABS: ALBUMIN 3.1 g/dL (3.4-5.0); ALBUMIN/GLOBULIN RATIO 0.6 (1.0-1.7); CALCIUM 9.4 mg/dL (8.5-10.1); GFR 72.9; TOTAL BILIRUBIN 0.4 mg/dL (0.2-1.0)
[2016-05-27 14:57] VITALS: BP 133/60
[2016-05-27 19:00] VITALS: BP 141/67
[2016-05-27 23:00] VITALS: BP 121/52
[2016-05-28 03:00] VITALS: BP 131/59
[2016-05-28 07:00] VITALS: BP 130/62
[2016-05-28] MEDS: POLYETHYLENE GLYCOL 3350 17 GM PACKET. PO PRN (08:36)
[2016-05-28] MEDS: FLUCONAZOLE 100 MG TABLET. PO SCH (08:36)
[2016-05-28] MEDS: LINEZOLID 600 MG TABLET PO SCH (08:37)
--- NOTE | 2016-05-28 08:45 | PDOC ---
LAUREN HOLLIS SPECIAL INSPECTOR 05/28/16 0845: SURGICAL PROGRESS NOTE Subjective pain is slowly improving pain with packing, pressure to leg Vital Signs Vital Signs Date Time Temp Pulse Resp B/P Pulse Ox O2 Delivery O2 Flow Rate FiO2 05/28/16 07:00 Room Air 05/28/16 07:00 97.7 62 16 130/62 96 97.7 I&O Intake and Output 05/28/16 07:00 Intake Total 1540 ml Balance 1540 ml Intake Oral 1540 ml # Voids 5 General: Alert, Oriented X3, Cooperative, No acute distress Extremities: Other (left groin, erythema improved, open wound packed, serous drainage) Labs Laboratory Tests Test 05/27/16 11:30 White Blood Count 5.5x10^3/uL (4.0-11.0) Red Blood Count 4.36x10^6/uL (3.50-5.40) Hemoglobin 12.8g/dL (12.0-15.5) Hematocrit 38.0% (36.0-47.0) Mean Corpuscular Volume 87fL (79-100) Mean Corpuscular Hemoglobin 29pg (25-35) Mean Corpuscular Hemoglobin Concent 34g/dL (31-37) Red Cell Distribution Width 12.6% (11.5-14.5) Platelet Count 300x10^3/uL (140-400) Neutrophils (%) (Auto) 55% (31-73) Lymphocytes (%) (Auto) 33% (24-48) Monocytes (%) (Auto) 8% (0-9) Eosinophils (%) (Auto) 3% (0-3) Basophils (%) (Auto) 1% (0-3) Neutrophils # (Auto) 3.0x10^3uL (1.8-7.7) Lymphocytes # (Auto) 1.8x10^3/uL (1.0-4.8) Monocytes # (Auto) 0.4x10^3/uL (0.0-1.1) Eosinophils # (Auto) 0.2x10^3/uL (0.0-0.7) Basophils # (Auto) 0.0x10^3/uL (0.0-0.2) Sodium Level 141mmol/L (136-145) Potassium Level 4.0mmol/L (3.5-5.1) Chloride Level 106mmol/L (98-107) Carbon Dioxide Level 28mmol/L (21-32) Anion Gap 7 (6-14) Blood Urea Nitrogen 13mg/dL (7-20) Creatinine 1.0mg/dL (0.6-1.0) Estimated GFR (Cockcroft-Gault) 72.9 BUN/Creatinine Ratio 13 (6-20) Glucose Level 93mg/dL (70-99) Calcium Level 9.4mg/dL (8.5-10.1) Total Bilirubin 0.4mg/dL (0.2-1.0) Aspartate Amino Transf (AST/SGOT) 66U/L (15-37) Alanine Aminotransferase (ALT/SGPT) 151U/L (14-59) Alkaline Phosphatase 131U/L (46-116) Total Protein 8.0g/dL (6.4-8.2) Albumin 3.1g/dL (3.4-5.0) Albumin/Globulin Ratio 0.6 (1.0-1.7) Laboratory Tests Test 05/27/16 11:30 White Blood Count 5.5x10^3/uL (4.0-11.0) Red Blood Count 4.36x10^6/uL (3.50-5.40) Hemoglobin 12.8g/dL (12.0-15.5) Hematocrit 38.0% (36.0-47.0) Mean Corpuscular Volume 87fL (79-100) Mean Corpuscular Hemoglobin 29pg (25-35) Mean Corpuscular Hemoglobin Concent 34g/dL (31-37) Red Cell Distribution Width 12.6% (11.5-14.5) Platelet Count 300x10^3/uL (140-400) Neutrophils (%) (Auto) 55% (31-73) Lymphocytes (%) (Auto) 33% (24-48) Monocytes (%) (Auto) 8% (0-9) Eosinophils (%) (Auto) 3% (0-3) Basophils (%) (Auto) 1% (0-3) Neutrophils # (Auto) 3.0x10^3uL (1.8-7.7) Lymphocytes # (Auto) 1.8x10^3/uL (1.0-4.8) Monocytes # (Auto) 0.4x10^3/uL (0.0-1.1) Eosinophils # (Auto) 0.2x10^3/uL (0.0-0.7) Basophils # (Auto) 0.0x10^3/uL (0.0-0.2) Sodium Level 141mmol/L (136-145) Potassium Level 4.0mmol/L (3.5-5.1) Chloride Level 106mmol/L (98-107) Carbon Dioxide Level 28mmol/L (21-32) Anion Gap 7 (6-14) Blood Urea Nitrogen 13mg/dL (7-20) Creatinine 1.0mg/dL (0.6-1.0) Estimated GFR (Cockcroft-Gault) 72.9 BUN/Creatinine Ratio 13 (6-20) Glucose Level 93mg/dL (70-99) Calcium Level 9.4mg/dL (8.5-10.1) Total Bilirubin 0.4mg/dL (0.2-1.0) Aspartate Amino Transf (AST/SGOT) 66U/L (15-37) Alanine Aminotransferase (ALT/SGPT) 151U/L (14-59) Alkaline Phosphatase 131U/L (46-116) Total Protein 8.0g/dL (6.4-8.2) Albumin 3.1g/dL (3.4-5.0) Albumin/Globulin Ratio 0.6 (1.0-1.7) Problem List Problems Medical Problems: (1) Abscess Status: Acute (2) Cellulitis of leg, left Status: Acute Assessment/Plan cellulitis, wound spont drainage continue wound care and abx no surgical plans Problems: DESTINY PETERSEN MD 05/28/16 0951: SURGICAL PROGRESS NOTE Assessment/Plan Slowly improving, agree with Thierry's assessment and plan. Problems: LAUREN HOLLIS APRN May 28, 2016 08:45 DESTINY PETERSEN MD May 28, 2016 09:51
--- NOTE | 2016-05-28 08:46 | PDOC ---
Infectious Disease Note Subjective Subjective feeling much better ROS ROS GEN: Denies fevers, chills, sweats HEENT: Denies blurred vision, sore throat CV: Denies chest pain RESP: Denies shortness of air, cough GI: Denies n/v/d NEURO: Denies confusion, dizziness MSK: Denies weakness, joint pain/swelling Vital Sign Vital Signs Vital Signs Date Time Temp Pulse Resp B/P Pulse Ox O2 Delivery O2 Flow Rate FiO2 05/28/16 07:00 Room Air 05/28/16 07:00 97.7 62 16 130/62 96 97.7 Physical Exam PHYSICAL EXAM GENERAL: NAD, Alert HEENT: PERRL, OC/OP NECK: Supple, no JVD, no LN LUNGS: Clear HEART: S1S2, no gallop, no murmur ABD: Soft, NT, no organomegaly, no rebound,, left groin wound and cellulitis much improved EXT: No edema, no cyanosis SALES REPRESENTATIVE ADVERTISING: Alert, oriented x 3, no focal neurologic deficit SKIN: No rash IV: ok Labs Lab Laboratory Tests Test 05/27/16 11:30 White Blood Count 5.5x10^3/uL (4.0-11.0) Red Blood Count 4.36x10^6/uL (3.50-5.40) Hemoglobin 12.8g/dL (12.0-15.5) Hematocrit 38.0% (36.0-47.0) Mean Corpuscular Volume 87fL (79-100) Mean Corpuscular Hemoglobin 29pg (25-35) Mean Corpuscular Hemoglobin Concent 34g/dL (31-37) Red Cell Distribution Width 12.6% (11.5-14.5) Platelet Count 300x10^3/uL (140-400) Neutrophils (%) (Auto) 55% (31-73) Lymphocytes (%) (Auto) 33% (24-48) Monocytes (%) (Auto) 8% (0-9) Eosinophils (%) (Auto) 3% (0-3) Basophils (%) (Auto) 1% (0-3) Neutrophils # (Auto) 3.0x10^3uL (1.8-7.7) Lymphocytes # (Auto) 1.8x10^3/uL (1.0-4.8) Monocytes # (Auto) 0.4x10^3/uL (0.0-1.1) Eosinophils # (Auto) 0.2x10^3/uL (0.0-0.7) Basophils # (Auto) 0.0x10^3/uL (0.0-0.2) Sodium Level 141mmol/L (136-145) Potassium Level 4.0mmol/L (3.5-5.1) Chloride Level 106mmol/L (98-107) Carbon Dioxide Level 28mmol/L (21-32) Anion Gap 7 (6-14) Blood Urea Nitrogen 13mg/dL (7-20) Creatinine 1.0mg/dL (0.6-1.0) Estimated GFR (Cockcroft-Gault) 72.9 BUN/Creatinine Ratio 13 (6-20) Glucose Level 93mg/dL (70-99) Calcium Level 9.4mg/dL (8.5-10.1) Total Bilirubin 0.4mg/dL (0.2-1.0) Aspartate Amino Transf (AST/SGOT) 66U/L (15-37) Alanine Aminotransferase (ALT/SGPT) 151U/L (14-59) Alkaline Phosphatase 131U/L (46-116) Total Protein 8.0g/dL (6.4-8.2) Albumin 3.1g/dL (3.4-5.0) Albumin/Globulin Ratio 0.6 (1.0-1.7) Micro culture MRSA Objective Assessment Left groin abscess - open and drained. CT reviewed. MRSA Left groin cellulitis - better Obesity Transaminitis Plan Plan of Care Cont Zyvox and fluconazole Check labs Contact isolation f/u with me in 7-10 days DALY STOLL MD May 28, 2016 08:46
[2016-05-28 11:00] VITALS: BP 116/84
[2016-05-28] MEDS ORDERED: HYDR-2666 PO (11:59)
[2016-05-28] MEDS: HYDROCODONE/APAP 5/325MG TABLET. PO PRN (13:49)
[2016-05-28 15:00] VITALS: BP 141/70
--- NOTE | 2016-05-28 15:15 | PDOC3 ---
Discharge Summary [facility] Date of Admission: May 24, 2016 Discharge Date: May 28, 2016 Admitting Diagnosis 1. Left groin abscess and cellulitis.MRSA 2. Obesity, mild elevation of liver enzymes. Problems: Final Diagnosis Problems Medical Problems: (1) Abscess Status: Acute (2) Cellulitis of leg, left Status: Acute CONSULTS id sx Brief Hospital Course Ms. Barone is a 46 old F, comes for left groin pain, has cellulitis, spontaneously open wound with some drainage. + MRSA wound cx. dc home with zyvox, and diflucan for another 7ds. no sx done dc time 35min General: Alert, Oriented X3, Cooperative, No acute distress Heart: Regular rate, Normal S1, Normal S2, No murmurs Lungs: Clear Abdomen: Normal bowel sounds, Soft, No tenderness Extremities: Other (Left groin wound packed, + induration, open wound 1.5x1cm , postive edema less erythema) Problems: Disposition home CONDITION AT DISCHARGE: Improved Diet regular Scheduled PRN Hydrocodone Bit/Acetaminophen (Hydrocodone-Apap 5-325 ) 1-2 TAB PO PRN Q6HRS PRN PRN MODERATE TO SEVERE PAIN Follow Up id next week CHRISTINA ROSALES MD May 28, 2016 15:15
== END 2016-05-28 17:43 | disposition home or self-care (01) | DRG 603 ==
LOC: ER 08:58 → 4 NORTH 10:56
PROVIDERS: ADMIT Internal Medicine; ATTEND Internal Medicine
DX: L02.214 Cutaneous abscess of groin (principal); L03.116 Cellulitis of left lower limb; E66.9 Obesity, unspecified; Z60.2 Problems related to living alone; L03.314 Cellulitis of groin; Z68.36 Body mass index [BMI] 36.0-36.9, adult; Z90.49 Acquired absence of other specified parts of digestive tract; Z90.710 Acquired absence of both cervix and uterus
CPT/HCPCS: 36415; 74170; 80048; 80053; 80076; 83605; 85007; 85027; 87040; 87071; 87075; 87205; 94250; 96374; J2270; J2405; J2543; J3010; J3370; J7040; Q9967; 99285-25

== ENCOUNTER 2016-06-24 15:43 | Emergency (ER) | payer BC, OTHER ==
[~2016-06-24] VITALS: Ht 149.9 cm; Wt 81.6 kg
[~2016-06-24 15:43] MED LIST: HYDR-2666 PO
[2016-06-24 15:55] VITALS: BP 148/104
[2016-06-24] MEDS ORDERED: NAPROXEN 500 MG TABLET PO STA (16:14)
--- NOTE | 2016-06-24 16:24 | PHYS DOC ---
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 She is also complaining of frequency with no dysuria or urgency. Patient denies any chance she is . Denies any numbness or tenderness to bilateral lower extremities. Denies any loss of bowel bladder function. Denies any hematuria. Review of Systems Review of Systems Constitutional: Denies fever or chills [] Eyes: Denies change in visual acuity, redness, or eye pain [] HENT: Denies nasal congestion or sore throat [] Respiratory: Denies cough or shortness of breath [] Cardiovascular: No additional information not addressed in HPI [] GI: Denies abdominal pain, nausea, vomiting, bloody stools or diarrhea [] : Denies dysuria or hematuria [] Musculoskeletal: Left low back pain radiating to the left lower abdomen Integument: Denies rash or skin lesions [] Neurologic: Denies headache, focal weakness or sensory changes [] Endocrine: Denies polyuria or polydipsia [] Current Medications Current Medications Current Medications Medications (Trade) Dose Ordered Sig/Kaylee Start Time Stop Time Status Last Admin Dose Admin Acetaminophen/ Hydrocodone Bitart (Lortab 5/325) 2 tab 1X ONCE 06/24/16 16:45 06/24/16 16:46 DC Cyclobenzaprine HCl (Flexeril) 10 mg 1X ONCE 06/24/16 16:45 06/24/16 16:46 DC Naproxen (Naprosyn) 500 mg 1X STAT 06/24/16 16:14 06/24/16 16:19 DC Allergies Allergies Allergies Coded Allergies Type Severity Reaction Last Updated Verified I S O L A T I O N *CONTACT* Allergy Unknown 05/28/16 Yes No Known Medication Allergies Allergy Unknown 05/28/16 Yes Physical Exam Physical Exam Constitutional: Well developed, well nourished, no acute distress, non-toxic appearance. [] HENT: Normocephalic, atraumatic, bilateral external ears normal, oropharynx moist, no oral exudates, nose normal. [] Eyes: PERRLA, EOMI, conjunctiva normal, no discharge. [] Neck: Normal range of motion, no tenderness, supple, no stridor. [] Cardiovascular:Heart rate regular rhythm, no murmur [] Lungs & Thorax: Bilateral breath sounds clear to auscultation [] Abdomen: Bowel sounds normal, soft, no tenderness, no masses, no pulsatile masses. [] Skin: Warm, dry, no erythema, no rash. [] Back: Diffuse paraspinal muscle tenderness to the left lower lumbar region worse on the left SI joint, no midline tenderness, no CVA tenderness. [] Extremities: No tenderness, no cyanosis, no clubbing, ROM intact, no edema. [] Neurologic: Alert and oriented X 3, normal motor function, normal sensory function, no focal deficits noted. [] Psychologic: Affect normal, judgement normal, mood normal. [] Current Patient Data Vital Signs Vital Signs Date Time Temp Pulse Resp B/P Pulse Ox O2 Delivery O2 Flow Rate FiO2 06/24/16 15:55 98.2 108 20 148/104 100 Room Air 98.2 Lab Values Laboratory Tests Test 06/24/16 16:14 Urine Collection Type Unknown Urine Color Yellow Urine Clarity Clear Urine pH 5.5 Urine Specific [place] >=1.030 Urine Protein Negativemg/dL (NEG-TRACE) Urine Glucose (UA) Negativemg/dL (NEG) Urine Ketones (Stick) Negativemg/dL (NEG) Urine Blood Negative (NEG) Urine Nitrite Negative (NEG) Urine Bilirubin Negative (NEG) Urine Urobilinogen Dipstick 0.2mg/dL (0.2 mg/dL) Urine Leukocyte Esterase Negative (NEG) Urine RBC Occ/HPF (0-2) Urine WBC 1-4/HPF (0-4) Urine Squamous Epithelial Cells Mod/LPF Urine Bacteria Few/HPF (0-FEW) Urine Mucus Mod/LPF EKG EKG [] Radiology/Procedures Radiology/Procedures [] Course & Med Decision Making Course & Med Decision Making Pertinent Labs and Imaging studies reviewed. (See chart for details) Patient is in the ED complaining of left lower back pain radiating to the left lower abdomen as well as frequency. Urine analysis is negative for infection. Patient's pain is musculoskeletal. She is in no distress. She was discharged with some pain medicine and instructed follow up with her own PCP in a week. She was provided return precautions and discharged in stable condition. Tao Disclaimer Lanaon Disclaimer This electronic medical record was generated, in whole or in part, using a voice recognition dictation system. Departure Departure Impression: Primary Impression: Low back pain Disposition: HOME, SELF-CARE Condition: STABLE Referrals: CAROLINA SUTHERLAND DO (PCP) Follow-up with your doctor in one week Patient Instructions: Back Pain, Adult Additional Instructions: You were seen for back pain. Follow-up with your own doctor in one week. Take the prescribed medicines as ordered. Apply heat to your back. Come back to the ED if symptoms worsen especially if you develop any loss of bowel or bladder function. Scripts Hydrocodone/Apap 5-325 (Brainard 5-325 Tablet)1 Each Tablet1-2 Tab PO Q4-6HRS #12 TAB Prov:PAULETTE SEQUEIRA APRN 06/24/16 Cyclobenzaprine Hcl 10 Mg Tablet1 Tab PO TID #30 TAB Prov:PAULETTE SEQUEIRA APRN 06/24/16 Naproxen 500 Mg Tablet.dr1 Tab PO BID #60 TAB Prov:PAULETTE SEQUEIRA APRN 06/24/16 Problem Qualifiers Primary Impression: Low back pain Chronicity: acute Back pain laterality: left Sciatica presence: without sciatica Qualified Code: M54.5 - Low back pain PAULETTE SEQUEIRA APRN Jun 24, 2016 16:24
[2016-06-24 16:27] LABS: BILIRUBIN,URINE NEGATIVE (NEG); GLUCOSE,URINE NEGATIVE (NEG); NITRITE,URINE NEGATIVE (NEG); PH,URINE 5.5; PROTEIN,URINE NEGATIVE (NEG-TRACE); UROBILINOGEN,URINE 0.2 mg/dL (0.2 mg/dL)
[2016-06-24 16:40] LABS: BACTERIA,URINE FEW /HPF (0-FEW); RBC,URINE OCC /HPF (0-2); SQUAMOUS EPITHELIAL CELL,UR MOD /LPF
[2016-06-24] MEDS ORDERED: HYDROCODONE/APAP 5/325MG TABLET. PO ONE (16:45)
[2016-06-24] MEDS ORDERED: CYCLOBENZAPRINE 10 MG TABLET. PO ONE (16:45)
[2016-06-24] MEDS ORDERED: CYCL10TA2 PO (17:02)
[2016-06-24] MEDS ORDERED: HYDR-971 PO (17:02)
[2016-06-24] MEDS ORDERED: NAPR500T8 PO (17:02)
== END 2016-06-24 17:15 | disposition home or self-care (01) ==
LOC: ER 15:43
DX: M54.5 Low back pain (principal); Z91.041 Radiographic dye allergy status
CPT/HCPCS: 81001; 99284

== ENCOUNTER 2018-04-05 13:32 | Emergency (ER) | payer BC, OTHER ==
[~2018-04-05] VITALS: Ht 149.9 cm; Wt 76.2 kg
[~2018-04-05 13:32] MED LIST changes: +CYCL10TA2 PO; -HYDR-2666 PO; +HYDR-2761 PO; +HYDR-3164 PO; +NAPR500T8 PO
[2018-04-05] MEDS ORDERED: IOHEXOL 300 MG/ML 100ML VIAL. IV ONE (14:45)
[2018-04-05] MEDS ORDERED: IOHEXOL 240 MG/ML 50ML VIAL. PO ONE (14:45)
[2018-04-05 14:46] LABS: BILIRUBIN,URINE SMALL (NEG); CLARITY,URINE CLEAR; COLOR,URINE AMBER; NITRITE,URINE NEGATIVE (NEG); PH,URINE 5.5; PROTEIN,URINE NEGATIVE (NEG-TRACE)
[2018-04-05 14:54] LABS: BACTERIA,URINE MOD /HPF (0-FEW); RBC,URINE 0 /HPF (0-2); SQUAMOUS EPITHELIAL CELL,UR MOD /LPF; WBC,URINE OCC /HPF (0-4)
[2018-04-05] MEDS ORDERED: CONTRAST GIVEN. MC PRN (15:00)
[2018-04-05 15:02] LABS: BASO % 1 % (0-3); EOS # 0.1 x10^3/uL (0.0-0.7); EOS % 1 % (0-3); HEMATOCRIT 39.4 % (36.0-47.0); LYMPH # 0.9 x10^3/uL (1.0-4.8); LYMPH % 21 % (24-48); MEAN CORPUSCULAR HEMOGLOBIN 31 pg (25-35); MEAN CORPUSCULAR HGB CONC 35 g/dL (31-37); MEAN CORPUSCULAR VOLUME 88 fL (79-100); MONO # 0.3 x10^3/uL (0.0-1.1); MONO % 8 % (0-9); NEUT # 2.9 x10^3uL (1.8-7.7); NEUT % 70 % (31-73); PLATELET COUNT 216 x10^3/uL (140-400); RED CELL DISTRIBUTION WIDTH 13.2 % (11.5-14.5); WHITE BLOOD COUNT 4.2 x10^3/uL (4.0-11.0)
[2018-04-05 15:09] LABS: CALCIUM 9.1 mg/dL (8.5-10.1); GFR 72.2; POTASSIUM 3.2 mmol/L (3.5-5.1)
[2018-04-05 15:15] LABS: ALBUMIN 3.4 g/dL (3.4-5.0); DIRECT BILIRUBIN 0.2 mg/dL (0.0-0.2); TOTAL BILIRUBIN 0.7 mg/dL (0.2-1.0); TOTAL PROTEIN 7.3 g/dL (6.4-8.2)
[2018-04-05] MEDS ORDERED: MORPHINE SULFATE 10 MG/ML VIAL. IV ONE (15:15)
--- NOTE | 2018-04-05 15:56 | PHYS DOC ---
Past Medical History Past Medical History: No Pertinent History Past Surgical History: Appendectomy, Hysterectomy Alcohol Use: Rarely Drug Use: None Adult General Chief Complaint Chief Complaint: ABDOMINAL PAIN HPI HPI Patient is a 48 year old female who presents with abdominal pain. Patient has been having intermittent pain in the upper left abdomen over the last couple weeks. She has not been able to identify any aggravating or alleviating factors. Pain has been intermittent but became more severe and lasted longer today so she decided to come to the ER. Pain is described be sharp and crampy at times. She has had some nausea but no vomiting. No diarrhea. No hematochezia or melanotic stools. She does have a prior surgical history positive for total hysterectomy and appendectomy. No fever or chills. No recent illness. No recent travel. Review of Systems Review of Systems Constitutional: Denies fever or chills Eyes: Denies change in visual acuity HENT: Denies nasal congestion Respiratory: Denies cough or shortness of breath Cardiovascular: No additional information not addressed in HPI GI: as documented above : Denies dysuria or hematuria Musculoskeletal: Denies back pain Integument: Denies rash or skin lesions Neurologic: Denies headache All other systems were reviewed and found to be within normal limits, except as documented in this note. Current Medications Current Medications Current Medications Medications (Trade) Dose Ordered Sig/Kaylee Start Time Stop Time Status Last Admin Dose Admin Fentanyl Citrate (Fentanyl 2ml Vial) 100 mcg STK-MED ONCE 04/05/18 16:25 04/05/18 16:27 DC Info (CONTRAST GIVEN -- Rx MONITORING) 1 each PRN DAILY PRN 04/05/18 15:00 04/05/18 16:42 DC Iohexol (Omnipaque 240 Mg/ml) 50 ml 1X ONCE 04/05/18 14:45 04/05/18 14:46 DC Iohexol (Omnipaque 300 Mg/ml) 75 ml 1X ONCE 04/05/18 14:45 04/05/18 14:46 DC 04/05/18 14:45 75 ML Morphine Sulfate (Morphine Sulfate) 6 mg 1X ONCE 04/05/18 15:15 04/05/18 15:16 DC 04/05/18 15:11 6 MG Allergies Allergies Allergies Coded Allergies Type Severity Reaction Last Updated Verified I S O L A T I O N *CONTACT* Allergy Unknown 05/28/16 Yes No Known Medication Allergies Allergy Unknown 05/28/16 Yes Physical Exam Physical Exam Constitutional: Well developed, well nourished, no acute distress, non-toxic appearance HENT: Normocephalic, atraumatic, bilateral external ears normal, oropharynx moist Eyes: PERRLA, EOMI, conjunctiva normal Neck: Normal range of motion, no tenderness Cardiovascular:Heart rate regular rhythm, no murmur Lungs & Thorax: Bilateral breath sounds clear to auscultation Abdomen: Bowel sounds normal, soft, mild TTP over the left UQ area. no guarding or rebound Skin: Warm, dry, no erythema, no rash Back: No tenderness, no CVA tenderness Extremities: No edema Neurologic: Alert and oriented X 3 Psychologic: Affect normal Current Patient Data Vital Signs Vital Signs Date Time Temp Pulse Resp B/P (MAP) Pulse Ox O2 Delivery O2 Flow Rate FiO2 04/05/18 16:00 82 137/85 (102) 98 Room Air 04/05/18 14:30 98.6 16 98.6 Lab Values Laboratory Tests Test 04/05/18 14:19 04/05/18 14:45 Urine Collection Type Unknown Urine Color [place] Urine Clarity Clear Urine pH 5.5 Urine Specific [place] >=1.030 Urine Protein Negative mg/dL (NEG-TRACE) Urine Glucose (UA) Negative mg/dL (NEG) Urine Ketones (Stick) Trace mg/dL (NEG) Urine Blood Negative (NEG) Urine Nitrite Negative (NEG) Urine Bilirubin Small (NEG) Urine Urobilinogen Dipstick 1.0 mg/dL (0.2 mg/dL) Urine Leukocyte Esterase Negative (NEG) Urine RBC 0 /HPF (0-2) Urine WBC Occ /HPF (0-4) Urine Squamous Epithelial Cells Mod /LPF Urine Bacteria Mod /HPF (0-FEW) Urine Mucus Mod /LPF White Blood Count 4.2 x10^3/uL (4.0-11.0) Red Blood Count 4.50 x10^6/uL (3.50-5.40) Hemoglobin 14.0 g/dL (12.0-15.5) Hematocrit 39.4 % (36.0-47.0) Mean Corpuscular Volume 88 fL (79-100) Mean Corpuscular Hemoglobin 31 pg (25-35) Mean Corpuscular Hemoglobin Concent 35 g/dL (31-37) Red Cell Distribution Width 13.2 % (11.5-14.5) Platelet Count 216 x10^3/uL (140-400) Neutrophils (%) (Auto) 70 % (31-73) Lymphocytes (%) (Auto) 21 % (24-48) L Monocytes (%) (Auto) 8 % (0-9) Eosinophils (%) (Auto) 1 % (0-3) Basophils (%) (Auto) 1 % (0-3) Neutrophils # (Auto) 2.9 x10^3uL (1.8-7.7) Lymphocytes # (Auto) 0.9 x10^3/uL (1.0-4.8) L Monocytes # (Auto) 0.3 x10^3/uL (0.0-1.1) Eosinophils # (Auto) 0.1 x10^3/uL (0.0-0.7) Basophils # (Auto) 0.0 x10^3/uL (0.0-0.2) Sodium Level 142 mmol/L (136-145) Potassium Level 3.2 mmol/L (3.5-5.1) L Chloride Level 107 mmol/L (98-107) Carbon Dioxide Level 27 mmol/L (21-32) Anion Gap 8 (6-14) Blood Urea Nitrogen 13 mg/dL (7-20) Creatinine 1.0 mg/dL (0.6-1.0) Estimated GFR (Cockcroft-Gault) 72.2 Glucose Level 120 mg/dL (70-99) H Calcium Level 9.1 mg/dL (8.5-10.1) Total Bilirubin 0.7 mg/dL (0.2-1.0) Direct Bilirubin 0.2 mg/dL (0.0-0.2) Aspartate Amino Transferase (AST) 15 U/L (15-37) Alanine Aminotransferase (ALT) 25 U/L (14-59) Alkaline Phosphatase 65 U/L (46-116) Total Protein 7.3 g/dL (6.4-8.2) Albumin 3.4 g/dL (3.4-5.0) Lipase 93 U/L (73-393) Laboratory Tests 04/05/18 14:45 Laboratory Tests 04/05/18 14:45 EKG EKG [] Radiology/Procedures Radiology/Procedures [] Course & Med Decision Making Course & Med Decision Making Pertinent Labs and Imaging studies reviewed. (See chart for details) Patient is evaluated on arrival to her room. She is in no acute distress although she is tearful because her family dog earlier today. Her physical exam is documented above. Standard abdominal pain workup is ordered. Morphine for pain. The patient is currently not nauseated. 16:45: All results are reviewed and discussed with the patient. CT scan did not reveal any acute findings. Urine was not infected. The respiratory labs were unremarkable. Suspect possible gastritis as a cause for her pain. The patient does endorse drinking enormous amounts of caffeinated beverages daily and caffeine as well as using energy drinks. She is advised to limit these as much as possible. She is placed on Nexium 1 tablet twice daily before meals. She is provided the number to the on-call GI physician and recommended to follow -up if the Nexium does not resolve her symptoms in the next several weeks. Otherwise, return to the ER for any new or worsening symptoms. Dragon Disclaimer Dragon Disclaimer This electronic medical record was generated, in whole or in part, using a voice recognition dictation system. Departure Departure Disposition: HOME, SELF-CARE Condition: GOOD Referrals: CAROLINA SUTHERLADN DO (PCP) Scripts Esomeprazole Magnesium (NEXIUM CAPSULE) 40 Mg Capsule. 1 CAP PO BIDAC, #60 CAP 0 Refills Prov: FELICIANO MONCADA DO 04/05/18 FELICIANO MONCADA DO Apr 05, 2018 15:56
--- NOTE | 2018-04-05 15:57 | RAD ---
CT scan of the abdomen and pelvis with contrast 04/05/2018 CLINICAL HISTORY: Left upper quadrant abdominal pain and cramping for 2 months. TECHNIQUE: After the intravenous administration of 75 cc of Omnipaque 300, contiguous, 5 mm axial sections were obtained through the abdomen and pelvis. FINDINGS: Comparison study is dated 08/26/2004. Images through the lung bases are within normal limits. The liver, spleen, pancreas, adrenal glands and kidneys are within normal limits. The abdominal aorta tapers normally. The gallbladder is well-distended. No free fluid or free air is seen within the abdomen. Air and stool is seen throughout the colon. The patient is post appendectomy. Images through the pelvis demonstrate the urinary bladder to be contracted. No free fluid is seen. Calcifications are seen within the pelvis consistent with phleboliths. Minimal S-shaped curvature of the thoracolumbar spine is noted. IMPRESSION: No acute abnormality is seen. Electronically signed by: Kris Taylor MD (04/05/2018 3:53 PM) [facility] [place]
[2018-04-05 16:00] VITALS: BP 137/85
[2018-04-05] MEDS ORDERED: fentaNYL PF VIAL 100 MCG/2 ML VIAL ONE (16:25)
[2018-04-05] MEDS ORDERED: ESOM40CA PO (16:29)
== END 2018-04-05 16:42 | disposition home or self-care (01) ==
LOC: ER 13:32
DX: R10.12 Left upper quadrant pain (principal); R11.0 Nausea; Z90.89 Acquired absence of other organs; Z90.710 Acquired absence of both cervix and uterus; Z91.041 Radiographic dye allergy status
CPT/HCPCS: 36415; 74177; 80048; 80076; 81001; 83690; 85025; 96374; 99284; J2270; Q9967